=== PATIENT | female | born 1980 | race Caucasian/White ===

== ENCOUNTER → 2018-08-05 11:02 | Outpatient (CLI) | payer OTHER, SELFPAY ==
[2018-08-05 12:19] LABS: Absolute Lymphocyte Count 1.49 X10^3/ul (0.83-4.51); Absolute Neutrophil Count 2.3 X10^3/uL (2.0-7.7); Basophil# 0.02 X10^3/uL; Basophil% 0.5 % (0-1); Eosinophil# 0.08 X10^3/uL; Eosinophils% 1.9 % (0-5); Hematocrit 40.1 % (37-47); Hemoglobin 13.1 g/dl (12.0-15.0); Lymphocyte # 1.49 X10^3/ul (4.0); Lymphocyte % 35.1 % (19-41); Mean Corp Hgb Conc 32.7 g/gl (32-36); Mean Corpuscular Hgb 26.8 pg (27.0-32.0); Mean Corpuscular Volume 82.2 fL (81-99); Mean Platelet Vol. 10.3 fl (6.2-12.0); Monocyte# 0.35 X10^3/uL; Monocyte% 8.3 % (0-10); Neutrophil # 2.29 X10^3/uL (2.7-7.7); Platelet Count 191 K/mm3 (150-450); RBC Distribution Width CV 13.5 % (11.6-14.6); RBC Distribution Width SD 39.9 fl (35.1-43.9); Red Blood Count 4.88 M/mm3 (4.2-5.4); White Blood Count 4.2 K/mm3 (4.4-11.0)
[2018-08-05 12:27] LABS: POSITIVE COUNT NO; POSITIVE DIFFERENTIAL NO; POSITIVE MORPHOLOGY NO
[2018-08-05 13:01] LABS: AST(SGOT) 9 U/L (15-37); Alanine Aminotransfer ALT/SGPT 16 U/L (13-56); Albumin, Serum 3.9 g/dL (3.2-5.0); Alkaline Phosphatase 53 U/L (45-117); Bilirubin, Direct 0.09 mg/dL (0.00-0.30); Globulin 3.3 g/dL (2.2-4.2); Protein, Total 7.2 g/dL (6.4-8.2)
[2018-08-05 13:04] LABS: Internal QC Validated? YES +Cl - CLEAR BKGD; Monotest Negative (Negative); Record Kit Lot#, Mono 13171517
== END ==
PROVIDERS: Visit Provider Family Medicine
DX: M06.9 Rheumatoid arthritis, unspecified (principal); R53.83 Other fatigue
CPT/HCPCS: 36415; 80076; 85025; 86308

== ENCOUNTER → 2018-08-19 12:58 | Outpatient (CLI) | payer OTHER, SELFPAY ==
--- NOTE | 2018-08-19 13:07 | MRI_ITS ---
STUDY: MRI LUMBAR SPINE WITHOUT CONTRAST REASON FOR EXAM: Female, 37 years old. Low back pain with numbness and weakness in the right leg TECHNIQUE: Standardized fat and water weighted pulse sequences were obtained in the sagittal and axial planes. COMPARISON: None FINDINGS: T12-L1: Normal endplates. Normal disc height, hydration and morphology. Normal bilateral facet joints. Normal central canal and bilateral lateral recesses. Normal bilateral intervertebral neural foramina. Normal lumbar lordosis. There is no substantial scoliosis. Normal conus medullaris that terminates at the L1-2 level. L1-2: Normal endplates. Normal disc height, hydration and morphology. Normal bilateral facet joints. Normal central canal and bilateral lateral recesses. Normal bilateral intervertebral neural foramina. L2-3: Normal endplates. Normal disc height, hydration and morphology. Normal bilateral facet joints. Normal central canal and bilateral lateral recesses. Normal bilateral intervertebral neural foramina. L3-4: Normal endplates. Normal disc height, hydration and morphology. Normal bilateral facet joints. Normal central canal and bilateral lateral recesses. Normal bilateral intervertebral neural foramina. L4-5: Broad central disc protrusion with bilateral facet hypertrophy. Moderate central canal stenosis. L5-S1: Bulging annulus and left paracentral annular fissure without compressive sequelae. Normal visualized sacral ala. Normal visualized paraspinous soft tissue structures. MRI/Spine Lumbar (Routine) IMPRESSION: Lower lumbar degenerative change as described. Moderate central canal stenosis at the L4-5 level. No evidence of nerve root impingement. Electronically Signed: Gurmeet aLnda MD at 8:54 EST Tel , Service support ,
== END ==
PROVIDERS: Family Provider Family Medicine; PCP Family Medicine; Referring Provider Family Medicine; Visit Provider Family Medicine
DX: M54.16 Radiculopathy, lumbar region (principal)
CPT/HCPCS: 72148

== ENCOUNTER → 2018-11-03 10:34 | Outpatient (CLI) | payer OTHER, SELFPAY ==
[2018-11-03 11:27] LABS: Color, Urine Yellow (Yellow); Glucose, Dipstick Normal (Normal); Ketone-Dipstick Negative (Negative); Leukocyte Esterase-Dipstick 100 /ul (Negative); Nitrite-Dipstick Negative (Negative); Occult Blood-Urine 250 /ul (Negative); Protein-Dipstick 30 mg/dl (Negative); Specific Gravity, Urine 1.025 (1.002-1.030); Urine Bilirubin Dipstick Negative (Negative); Urine Clarity Sl. Cloudy (Clear); Urine Urobilinogen Normal (Normal)
== END ==
PROVIDERS: Family Provider Family Medicine; PCP Family Medicine; Referring Provider Family Medicine; Visit Provider Family Medicine
DX: R30.0 Dysuria (principal)
CPT/HCPCS: 81002; 87086

== ENCOUNTER 2018-11-14 13:00 | Outpatient (RCR) | payer OTHER, SELFPAY ==
--- NOTE | 2018-10-28 15:51 | HP.PTEVAL_ITS ---
Patient's Visit Information ASHLEIGH MEDEL is a 38 year old F referred to Physical Therapy by Jocy Petersen MD with a diagnosis of BACK AND LEG PAIN. Date of Evaluation: 10/28/18 Physical Therapist: Paulina Ernandez PT, Cert MDT - Visit Plan Frequency: 2-3x /Week Duration: 4-6 Weeks Plan: AQUATIC THERAPY FOR PAIN RELEIF, POSTURE CORRECTION/STRENGTHENING, INSTRUCTION IN APPROPRIATE BODY MECHANICS AND ACTIVITY MODIFICATIONS. DLS STARTING WITH A NEUTRAL SPINE PROGRESSING ROM TOLERATED. ELVA LE ROM, STRETCHING AND STRENGTHENING. HEP INSTRUCTION. 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 OFF WORK 5.5 WEEKS FOR CURRENT CONDITION. BACK TO WORK SINCE END OF SEP 2018. RUN[employer]. Disability: NO. Present symptoms: CONSTANT L > RIGHT LBP. INTERMITTENT LEFT THIGH, LEG AND FOOT PAIN TO TOES. Present since: 6 MONTHS AGO. Pain Scale: WORST 8/10, LEAST 2/10. Currently: 4/10 LBP. Commenced as a result of: NO APPARENT REASON. Symptoms at onset: LOW BACK. Worse: BENDING, LIFTING, TWISTING, RUNNING, PROLONGED STANDING, STANDING UP STRAIGHT, PROLONGED SITTING, SDLY. MASSAGE THERAPY. Better: IBUPROFEN, MUSCLE RELAXER, HEAT. Disturbed sleep: NO. Previous history/Previous treatment: UNREMARKABLE UNTIL 6 MONTHS AGO. THIS EPISODE HAS HAD MRI AND SAW A SURGEON DR. GUTHRIE AT [facility] AND HE SENT HER TO DR. PETERSEN AND SHE HAD TWO MARIELENA'S - WITH TEMPORARY RELEIF ONLY. Coughing/sneezing/straining: NEGATIVE. Gait: LEANS TO THE RIGHT TO TRY TO GET PRESSURE OFF THE LLE AND CAN'T STAND UP STRAIGHT. Difficulty initiating urinatin: NO. Accidents: NO. Unexplained weight loss: NO. Imaging: LUMBAR MRI - L4-5: Broad central disc protrusion with bilateral facet hypertrophy. Moderate central canal stenosis. L5-S1: Bulging annulus and left paracentral annular fissure without compressive sequelae. PMH: RA, ASTHMA. Recent major surgery: 2016 HYSTERECTOMY, 2017 EMERGENCY APENDECTOMY, 2009 GALLBLADDER. PLOF (Prior Level of Function): UNLIMITED. OTHER: PATIENT REPORTS DR. GUTHRIE DOES NOT WANT TO DO SURGERY BECAUSE OF HER AGE. REPORTS HER CO-WORKERS ARE HELPING HER WITH LIFTING AT WORK BUT WORK IS TOUGH WITH BEING ON HER FEET A LOT FOR 12 HOUR SHIFT. - Objective Sitting/Standing Posture: POOR. RIGHT SHIFT AND INCREASED TRUNK FLEXION. Lordosis: REDUCED. Lateral shift: YES. Relevant shift: YES. Active Correction of posture: WORSE. Other Observations: INDEP SLOW GAIT INTO PT LIMPING ON LLE AND WITH EXCESSIVE TRUNK FLEX TO THE RIGHT BUT NO AD'S OR LOB. Motor deficit: RIGHT LE: HIP 4-/5, KNEE EXT 5/5, KNEE FLEX 5/5, ANKLE 5/5. LLE: HIP 3+/5, KNEE EXT 4/5, KNEE FLEX 4/5, ANKLE 3+/5. RIGHT HIP TESTING APPEARS TO BE PAIN LIMITED. Sensory deficit: ELVA LE LIGHT TOUCH SENSATION APPEARS TO BE INTACT AND SYMMETRICAL. ROM deficit: TIGHT ELVA HIP FLEXORS, LEFT HS'S AND LEFT GASTROC SOLEUS COMPLEX. Reflexes: 2/3 ELVA LE'S. Dural Signs: POSITIVE ELVA LE'S LEFT > RIGHT. Lumbar mvmt loss: flex - MOD - PRODUCES SHARP PAIN ACROSS LOW BACK. ext - FAISAL - UNALBE TO GET TO NEUTRAL. PERIPHERALIZES PAIN DOWN LEFT LE. R SG - MOD - INCREASES LBP. L SG - FAISAL - BACK GETS REALLY TIGHT, HURTS AND RADIATES INTO LLE. Core strength: POOR. Palpation: ACUTELY TENDER IN LUMBAR SPINE ESPECIALLY L345S1. VERY TIGHT ELVA PARASPINALS. - Goals Goal 1:: DECREASE C/O BACK AND LEFT LE SX'S Goal Time Frame: 4-6 Weeks Goal 2:: IMPROVE PERSONAL CARE, LIFTING, SITTING, STANDING, SLEEP, SOCIAL LIFE, TRAVEL, HOMEMAKING AND WORK FUNCTION. Goal Time Frame: 4-6 Weeks Goal 3:: INSTRUCT IN PROPHYLAXIS Goal Time Frame: 4-6 Weeks - Rehabilitation Potential Rehabilitation Potential: Fair - Anticipated Interventions Patient/Client Instruction: Educate patient on: Condition, Plan of Care, Risk Factors, Benefits of Fitness Program For the Purpose of:: To improve self management Therapeutic Exercise to Include: Strength training, Body mechanics, Postural training, Flexibilty training, In an aquatic setting, Active ROM, Dynamic Lumbar Stabilization For the Purpose of:: To decrease pain, To improve muscle performance and motor function, To increase tolerance to activity/condition/position, To improve ability of physical actions for home/community/work/leisure Thank you for the opportunity to evaluate your patient. For Medicare and Medicare HMO plans, please review the plan of care and approve it. It will need to be FAXED BACK to us at [phone] for Medicare purposes. For Medicare only, by signing this I certify the plan of care. Please let me know if there are questions or concerns regarding this plan of ca re. Physician Signature: Date:
--- NOTE | 2018-11-23 10:22 | HP.PTDCNRP_ITS ---
HP - Discharge Summary (1) - Patient Information ASHLEIGH MEDEL was seen in my office for initial evaluation on 10/28/18. The following Plan of Care was established for this patient: Initial Frequency: 2-3x /Week Initial Duration: 4-6 Weeks - Anticipated Interventions Patient/Client Instruction: Educate patient on: Condition, Plan of Care, Risk Factors, Benefits of Fitness Program For the Purpose of:: To improve self management Therapeutic Exercise to Include: Strength training, Body mechanics, Postural training, Flexibilty training, In an aquatic setting, Active ROM, Dynamic Lumbar Stabilization For the Purpose of:: To decrease pain, To improve muscle performance and motor function, To increase tolerance to activity/condition/position, To improve abili ty of physical actions for home/community/work/leisure This patient was last seen in our office . Pertinent comments regarding their Physical therapy will appear below: This patient has not returned to Physical Therapy and is appropriate to return to MD for further follow-up as needed. At this point I will be discontinuing this patient from physical therapy. I would be happy to see this patient again in the future if found appropriate by the physician. Thank you! Paulina Ernandez, PT, Cert MDT
--- OUTSIDE RECORDS SUMMARY | 2019-01-01 16:34 | XMS RPT_ITS ---
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 on 07/19/2018 Preliminary reason for visit data, not yet signed by the author as of Chief Complaint Chief Complaint Description Start Date right arm post Right endoscopic cubital tunnel syndrome with release of brachial and; Right endoscopic carpal tunnel release; Denervation of wrist; 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 Plan of Care Type Date Detail Appointment 09:30 AM Lisset Tavarez MD, [address] [facility] [place], [place], [address], Medications Medication Instructions Start Stop Generic Name NDC Provider Date Date DOXYCYCLINE 1 tab twice / DOXYCYCLINE 64884205714 Lisset Holloway HYCLATE 100 MG daily 14 HYCLATE Daysi TAN TABS LIDOCAINE 4 % apply topically / LIDOCAINE [id number] Mollie O CREA three times 02 Daysi TAN daily as needed OXYCODONE-ACETA 1 tablet twice / OXYCODONE-ACETAMI 96839757081 Mollie O MINOPHEN 5-325 daily 02 NOPOLGA Tavarez MD MG TABS PROBIOTIC 1 tablet daily / LACTOBACILLUS [id number] Mollie O ACIDOPHILUS 02 Daysi TAN CAPS PREMARIN 0.625 1 tablet daily / ESTROGENS [id number] Mollie O MG TABS 02 CONJUGATED Daysi TAN OMEPRAZOLE 20 1 capsule daily / OMEPRAZOLE 38722695525 Mollie O MG CPDR 02 Daysi TAN GABAPENTIN 400 1 capsule four / GABAPENTIN 75489450128 Mollie O MG CAPS times daily 02 Daysi TAN SYNTHROID 125 1 tablet daily / LEVOTHYROXINE 30537215758 Mollie O MCG TABS SODIUM Daysi TAN FLURBIPROFEN 1 tablet three / FLURBIPROFEN 62037502512 Mollie O 100 MG TABS times daily 02 Daysi TAN DULOXETINE HCL 1 capsule daily / DULOXETINE HCL 97904356279 Mollie O 30 MG CPEP 02 Daysi TAN BENICAR 40 MG 1 tablet in the / OLMESARTAN 02417926437 Mollie O TABS evening 21 MEDOXOMIL Daysi TAN VITAMIN D3 2000 1 tablet daily / CHOLECALCIFEROL 65348253195 Mollie O UNIT TABS 21 Daysi TAN MAGNESIUM 400 1 tablet daily / MAGNESIUM 43171457302 Mollie O MG TABS 21 Daysi TAN MULTI VITAMIN 1 tablet daily / MULTIPLE VITAMIN 69088895230 Griselda TABS 02 SENIOR UI UX DESIGNER Conditions or Problems Problem Name Problem Onset Status Entry Provider Comment Standard Annotate Code Date Date Description 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 Peripheral 189500114 Active Mollie O Peripheral nerve neuropathy (SNOMED 02/28 02/[address]) Unilateral M18.11 Active Mollie O Unilateral primary (ICD-10-CM 02/28 02/28 Daysi TAN primary osteoarthritis ) osteoarthritis of first of first carpometacarpa carpometacarpal l joint right joint, right hand hand Unilateral M18.12 Active Mollie O Unilateral primary (ICD-10-CM 02/28 02/28 Daysi TAN primary osteoarthritis ) osteoarthritis of first of first carpometacarpa carpometacarpal l joint left joint, left hand hand Primary M19.042 Active Mollie O Primary osteoarthritis (ICD-10-CM 02/28 02/28 Daysi TAN osteoarthritis, left hand ) left hand Primary M19.041 Active Mollie O Primary osteoarthritis (ICD-10-CM 02/28 02/28 Daysi TAN osteoarthritis, right hand ) right hand Lesion of G56.22 Active Mollie O Lesion of ulnar ulnar nerve (ICD-10-CM 02/28 02/28 Daysi TAN nerve, left left upper ) upper limb limb Lesion of G56.21 Active Mollie O Lesion of ulnar ulnar nerve (ICD-10-CM 02/28 02/28 Daysi TAN nerve, right right upper ) upper limb limb Carpal tunnel G56.02 Active Mollie O Carpal tunnel syndrome left (ICD-10-CM 02/28 02/28 Daysi TAN syndrome, left upper limb ) upper limb Carpal tunnel G56.01 Active Mollie O Carpal tunnel syndrome right (ICD-10-CM 02/28 02/28 Daysi TAN syndrome, right upper limb ) upper limb Trochanteric M70.62 Active Alireza العراقي Trochanteric bursitis left (ICD-10-CM 10/13 10/13 Audi TAN bursitis, left hip ) hip Presence of Z96.652 Active Alireza العراقي Presence of left left (ICD-10-CM 10/13 10/13 Audi TAN artificial knee artificial ) joint knee joint Presence of Z96.651 Active Alireza العراقي Presence of right (ICD-10-CM 10/13 10/13 Audi TAN right artificial artificial ) knee joint knee joint Closed [id number] Active Brady Closed fracture nondisplaced (SNOMED 12/01 12/01 Regan of patella fracture of CT) PAC right patella, unspecified fracture morphology, initial encounter Allergies, Adverse Reactions, Alerts Allergy Name Reaction Start Date Severity Status Provider Description VICRYL SUTURE doesn't heal Critical Active Lisset Holloway until all Daysi TAN sutures are removed. DEMEROL severe headache Critical Active Ernestine Brayan SENIOR UI UX DESIGNER NUCYNTA extreme Critical Active Ernestine Brayan drowziness,itchi SENIOR UI UX DESIGNER ng HYDROCHLOROTHIAZIDE disoriented Critical Active Ernestine Brayan SENIOR UI UX DESIGNER VICODIN rash Critical Active Ernestine Brayan (HYDROCODONE-ACETAMINOPH SENIOR UI UX DESIGNER EN TABS) Social History No information available. Vital Signs Date Name Value Unit Description BMI (Body Mass 33.25 kg/m2 Body Mass Index Index) [Ratio] Preliminary vital sign data, not yet signed by the author as of BP Diastolic 77 mm[Hg] blood pressure, diastolic Preliminary vital sign data, not yet signed by the author as of BP Systolic 119 mm[Hg] blood pressure, systolic Preliminary vital sign data, not yet signed by the author as of Heart Rate 79 /min pulse rate E&M Preliminary vital sign data, not yet signed by the author as of Height 63 [in_us] height E&M Preliminary vital sign data, not yet signed by the author as of Height 160 cm height in centimeters E&M Preliminary vital sign data, not yet signed by the author as of Weight Measured 187 [lb_av] weight E&M Preliminary vital sign data, not yet signed by the author as of Weight Measured 85 kg weight in kilograms E&M Preliminary vital sign data, not yet signed by the author as of Results Date Name Value Unit Range Flag Description Office Visit: Postop - subsequent visit, Rm: 7 MEDS REVIEW Done Documentation of current medications (procedure) Preliminary observation data, not yet signed by the author as of Preliminary observation data, not yet signed by the author as of Clinical Summary: HMSPatientID SOP account number Procedures Code Procedure Name Date Entry Date G8730 Pain assessment documented as positive - follow-up documented G8427 Current medications documented 1036F Tobacco screening was negative - non user G8417 BMI documented as above normal parameters - follow-up documented G8783 Blood pressure within normal parameters - no follow-up required [facility] [id number] Patient Encounter Medications Administered No information available. Immunizations No information available. Advance Directives There may be information available, but it has not been provided by the sender. Assessments There may be information available, but it has not been provided by the sender. Review of Systems There may be information available, but it has not been provided by the sender. Family History There may be information available, but it has not been provided by the sender. History of Past Illness There may be information available, but it has not been provided by the sender. History of Present Illness There may be information available, but it has not been provided by the sender.
--- OUTSIDE RECORDS SUMMARY | 2019-01-01 16:34 | XMS RPT_ITS ---
:1980 Author Organization OH[facility] Care Team Providers Name Role Phone Basali, Ayman Attending Unavailable Basali, Ayman Referring Unavailable Miedel, Soniya Primary Care Unavailable Miedel, Soniya Attending Unavailable Miedel, Soniya Referring Unavailable Miedel, Soniya Primary Care Unavailable ASSESSMENT, HEALTH RISK Attending Unavailable ASSESSMENT, HEALTH RISK Referring Unavailable Miedel, Soniya Primary Care Unavailable Miedel, Soniya Attending Unavailable Miedel, Soniya Attending Unavailable Miedel, Soniya Referring Unavailable Miedel, Soniya Primary Care Unavailable PROBLEMS PROBLEMS DATE TYPE CONDITION / CODE ATTENDING STATUS SOURCE 11/03/2018 Unknown R30.0 - Dysuria / Miedel, Soniya Active [facility] R30.0(ICD-10) [facility] Repository 08/05/2018 Unknown R53.83 - Other Miedel, Soniya Active [facility] fatigue / Community R53.83(ICD-10) Hospital Repository 08/05/2018 Unknown M06.9 - Miedel, Soniya Active [facility] Rheumatoid Community arthritis, Hospital unspecified / Repository M06.9(ICD-10) PROCEDURES PROCEDURES No Procedure Records FoundRESULTS RESULTS URINALYSIS, ROUTINE Collected: 11/03/2018 Status: F Source: [place] (DIPSTICK) 10:41 AM [facility] REPOSITORY Order Comment: How was Urine Obtained? CLEAN CATCH TYPE CODE TESTS RESULT OUT OF RANGE REFERENCE UNITS LAB L400.3000 Yellow COLOR Normal Yellow LAB L400.3050 Clear Normal CLARITY Sl. Cloudy LAB L400.3200 Normal mg/dl Normal GLUCOSE, UR Normal LAB L400.3300 Negative mg/dL Normal BILIRUBIN URINE Negative LAB L400.3400 Negative mg/dl Normal KETONE UR Negative LAB L400.3465 1.002-1.030 Normal SP.GR. DIPSTX 1.025 LAB L400.3550 5.0 - 8.0 pH UR Normal 5.0 LAB L400.3600 Negative mg/dl High PROT 30 DIPSTX LAB L400.3700 Normal mg/dl Normal UROBILI Normal LAB L400.3750 Negative Normal NITRITE UR Negative LAB L400.3780 Negative /ul High OCCULT BLOOD-UR 250 LAB L400.3800 Negative /ul High LEUK ESTERASE 100 Performed By: #### L400.2010 #### [facility] [place], [address] Observed: 11/03/2018 Status: F Source: [place] CULTURE, URINE 10:41 AM [facility] REPOSITORY Urine Culture Culture exhibits no growth. Performed By: #### M100.0650 #### [facility] [address] [place], [address] INITAL EVALUATION (1) Observed: 10/28/2018 Status: F Source: [place] - PT 4:24 PM [facility] REPOSITORY [facility] [address] [place] [address] / REHABILITATION SERVICES INITIAL EVALUATION MR#: [id number] Acct: [id number] Name: ASHLEIGH MEDEL Rep #: [id number] : 1980 38 From: Paulina Ernandez PT, Cert. MDT Referring Dr.: Jocy Petersen MD Status: REG RCR Insurance: [employer] [email or web address] SELF PAY INSURANCE Patient's Visit Information ASHLEIGH MEDEL is a 38 year old F referred to Physical Therapy by Jocy Petersen MD with a diagnosis of BACK AND LEG PAIN. Date of Evaluation: 10/28/18 Physical Therapist: Paulina Ernandez PT, Cert MDT - Visit Plan Frequency: 2-3x /Week Duration: 4-6 Weeks Plan: AQUATIC THERAPY FOR PAIN RELEIF, POSTURE CORRECTION/STRENGTHENING, INSTRUCTION IN APPROPRIATE BODY MECHANICS AND ACTIVITY MODIFICATIONS. DLS STARTING WITH A NEUTRAL SPINE PROGRESSING ROM TOLERATED. ELVA LE ROM, STRETCHING AND STRENGTHENING. HEP INSTRUCTION. 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 OFF WORK 5.5 WEEKS FOR CURRENT CONDITION. BACK TO WORK SINCE END OF SEP 2018. RUNNER. Disability: NO. Present symptoms: CONSTANT L > RIGHT LBP. INTERMITTENT LEFT THIGH, LEG AND FOOT PAIN TO TOES. Present since: 6 MONTHS AGO. Pain Scale: WORST 8/10, LEAST 2/10. Currently: 4/10 LBP. Commenced as a result of: NO APPARENT REASON. Symptoms at onset: LOW BACK. Worse: BENDING, LIFTING, TWISTING, RUNNING, PROLONGED STANDING, STANDING UP STRAIGHT, PROLONGED SITTING, SDLY. MASSAGE THERAPY. Better: IBUPROFEN, MUSCLE RELAXER, HEAT. Disturbed sleep: NO. Previous history/Previous treatment: UNREMARKABLE UNTIL 6 MONTHS AGO. THIS EPISODE HAS HAD MRI AND SAW A SURGEON DR. GUTHRIE AT [facility] AND HE SENT HER TO DR. PETERSEN AND SHE HAD TWO MARIELENA'S - WITH TEMPORARY RELEIF ONLY. Coughing/sneezing/straining: NEGATIVE. Gait: LEANS TO THE RIGHT TO TRY TO GET PRESSURE OFF THE LLE AND CAN'T STAND UP STRAIGHT. Difficulty initiating urinatin: NO. Accidents: NO. Unexplained weight loss: NO. Imaging: LUMBAR MRI - L4-5: Broad central disc protrusion with bilateral facet hypertrophy. Moderate central canal stenosis. L5-S1: Bulging annulus and left paracentral annular fissure without compressive sequelae. PMH: RA, ASTHMA. Recent major surgery: 2016 HYSTERECTOMY, 2017 EMERGENCY APENDECTOMY, 2009 GALLBLADDER. PLOF (Prior Level of Function): UNLIMITED. OTHER: PATIENT REPORTS DR. GUTHRIE DOES NOT WANT TO DO SURGERY BECAUSE OF HER AGE. REPORTS HER CO-WORKERS ARE HELPING HER WITH LIFTING AT WORK BUT WORK IS TOUGH WITH BEING ON HER FEET A LOT FOR 12 HOUR SHIFT. - Objective Sitting/Standing Posture: POOR. RIGHT SHIFT AND INCREASED TRUNK FLEXION. Lordosis: REDUCED. Lateral shift: YES. Relevant shift: YES. Active Correction of posture: WORSE. Other Observations: INDEP SLOW GAIT INTO PT LIMPING ON LLE AND WITH EXCESSIVE TRUNK FLEX TO THE RIGHT BUT NO AD'S OR LOB. Motor deficit: RIGHT LE: HIP 4-/5, KNEE EXT 5/5, KNEE FLEX 5/5, ANKLE 5/5. LLE: HIP 3+/5, KNEE EXT 4/5, KNEE FLEX 4/5, ANKLE 3+/5. RIGHT HIP TESTING APPEARS TO BE PAIN LIMITED. Sensory deficit: ELVA LE LIGHT TOUCH SENSATION APPEARS TO BE INTACT AND SYMMETRICAL. ROM deficit: TIGHT ELVA HIP FLEXORS, LEFT HS'S AND LEFT GASTROC SOLEUS COMPLEX. Reflexes: 2/3 ELVA LE'S. Dural Signs: POSITIVE ELVA LE'S LEFT > RIGHT. Lumbar mvmt loss: flex - MOD - PRODUCES SHARP PAIN ACROSS LOW BACK. ext - FAISAL - UNALBE TO GET TO NEUTRAL. PERIPHERALIZES PAIN DOWN LEFT LE. R SG - MOD - INCREASES LBP. L SG - FAISAL - BACK GETS REALLY TIGHT, HURTS AND RADIATES INTO LLE. Core strength: POOR. Palpation: ACUTELY TENDER IN LUMBAR SPINE ESPECIALLY L345S1. VERY TIGHT ELVA PARASPINALS. - Goals Goal 1:: DECREASE C/O BACK AND LEFT LE SX'S Goal Time Frame: 4-6 Weeks Goal 2:: IMPROVE PERSONAL CARE, LIFTING, SITTING, STANDING, SLEEP, SOCIAL LIFE, TRAVEL, HOMEMAKING AND WORK FUNCTION. Goal Time Frame: 4-6 Weeks Goal 3:: INSTRUCT IN PROPHYLAXIS Goal Time Frame: 4-6 Weeks - Rehabilitation Potential Rehabilitation Potential: Fair - Anticipated Interventions Patient/Client Instruction: Educate patient on: Condition, Plan of Care, Risk Factors, Benefits of Fitness Program For the Purpose of:: To improve self management Therapeutic Exercise to Include: Strength training, Body mechanics, Postural training, Flexibilty training, In an aquatic setting, Active ROM, Dynamic Lumbar Stabilization For the Purpose of:: To decrease pain, To improve muscle performance and motor function, To increase tolerance to activity/condition/position, To improve ability of physical actions for home/community/work/leisure Thank you for the opportunity to evaluate your patient. For Medicare and Medicare HMO plans, please review the plan of care and approve it. It will need to be FAXED BACK to us at [phone] for Medicare purposes. For Medicare only, by signing this I certify the plan of care. Please let me know if there are questions or concerns regarding this plan of care. Physician Signature: Date: <Electronically signed by Paulina Ernandez PT, Cert. MDT> 10/28/18 1624 CC: Jocy Petersen MD; Soniya Feng MD [place] Signed CNCO Observed: 09/13/2018 Status: COMPLETED Source: [place] 12:00 AM [facility] REPOSITORY Letter Text Department of Gastroenterology [address] [place] [place] [address] 09/12/18 Ashleigh Medel [facility] [place] [address] Dear Ashleigh, We show you had an apt with DIGNA Zuleta today 09/12/18. If problem is still persisting please call to reschedule [phone]. Sincerely, DIGNA Jim/Casandra Lincoln LPN SPINE LUMBAR Observed: 08/19/2018 Status: F Source: [place] (ROUTINE) 1:07 PM [facility] REPOSITORY [facility] Imaging Services [address] [place] [address] Spine Lumbar (Routine) MR#: [id number] Acct: [id number] Name: ASHLEIGH MEDEL Rep #: [id number] : 1980 F 37 From: Gurmeet Landa MD PCP: Soniya Feng MD Status: REG CLI Study: Spine Lumbar (Routine) Date of Exam: 08/19/18 Exam# [id number] Ordering Dr: Soniya Feng MD ADDENDUM by Gurmeet Landa MD on 08/23/18 at 2308 ADDENDUM Comparison radiographs from 2009 are now available. Alignment is stable. Electronically Signed: Gurmeet Landa MD at 23:08 EST Tel , Service support , 08/23/18 2308 Date cc: Soniya Feng MD * Signed ADDENDUM by Gurmeet Lnada MD on 08/23/18 at 2308 ADDENDUM Comparison radiographs from 2009 are now available. Alignment is stable. Electronically Signed: Gurmeet Landa MD at 23:08 EST Tel , Service support , 08/23/18 2308 Date cc: Soniya Feng MD * Signed ADDENDUM by Gurmeet Landa MD on 08/23/18 at 2308 MRI/Spine Lumbar (Routine) 08/23/18 231 Date cc: Soniya Feng MD * Signed ADDENDUM by Gurmeet Landa MD on 08/23/18 at 2308 MRI/Spine Lumbar (Routine) 08/23/18 231 Date cc: Soniya Feng MD * Signed STUDY: MRI LUMBAR SPINE WITHOUT CONTRAST REASON FOR EXAM: Female, 37 years old. Low back pain with numbness and weakness in the right leg TECHNIQUE: Standardized fat and water weighted pulse sequences were obtained in the sagittal and axial planes. COMPARISON: None FINDINGS: T12-L1: Normal endplates. Normal disc height, hydration and morphology. Normal bilateral facet joints. Normal central canal and bilateral lateral recesses. Normal bilateral intervertebral neural foramina. Normal lumbar lordosis. There is no substantial scoliosis. Normal conus medullaris that terminates at the L1-2 level. L1-2: Normal endplates. Normal disc height, hydration and morphology. Normal bilateral facet joints. Normal central canal and bilateral lateral recesses. Normal bilateral intervertebral neural foramina. L2-3: Normal endplates. Normal disc height, hydration and morphology. Normal bilateral facet joints. Normal central canal and bilateral lateral recesses. Normal bilateral intervertebral neural foramina. L3-4: Normal endplates. Normal disc height, hydration and morphology. Normal bilateral facet joints. Normal central canal and bilateral lateral recesses. Normal bilateral intervertebral neural foramina. L4-5: Broad central disc protrusion with bilateral facet hypertrophy. Moderate central canal stenosis. L5-S1: Bulging annulus and left paracentral annular fissure without compressive sequelae. Normal visualized sacral ala. Normal visualized paraspinous soft tissue structures. MRI/Spine Lumbar (Routine) IMPRESSION: Lower lumbar degenerative change as described. Moderate central canal stenosis at the L4-5 level. No evidence of nerve root impingement. Electronically Signed: Gurmeet Landa MD at 8:54 EST Tel , Service support , CC: Soniya Feng MD Quality Control Auditor: Signed CBC W/DIFF, AUTOMATED Collected: 08/05/2018 Status: F Source: [place] 11:05 AM [facility] REPOSITORY TYPE CODE TESTS RESULT OUT OF RANGE REFERENCE UNITS LAB L100.1000 4.4-11.0 K/mm3 Low WBC 4.2 LAB L100.1200 4.2-5.4 M/mm3 Normal RBC 4.88 LAB L100.1300 12.0-15.0 g/dl Normal HGB 13.1 LAB L100.1400 37-47 % Normal HCT 40.1 LAB L100.1500 81-99 fL Normal MCV 82.2 LAB L100.1600 27.0-32.0 pg Low MCH 26.8 LAB L100.1700 32-36 g/gl Normal MCHC 32.7 LAB L100.1810 11.6-14.6 % Normal RDW CV 13.5 LAB L100.1820 35.1-43.9 fl Normal RDW SD 39.9 LAB L100.1900 150-450 K/mm3 Normal PLT 191 LAB L100.2000 6.2-12.0 fl Normal MPV 10.3 LAB L100.2100 47-70 % Normal NEUT% 54.0 LAB L100.2200 19-41 % Normal LY% 35.1 LAB L100.2300 0-10 % Normal MONO% 8.3 LAB L100.2400 0-5 % Normal EO% 1.9 LAB L100.2500 0-1 % Normal BASO% 0.5 LAB L100.2550 0.0-0.9 % Normal IM GRAN % 0.200 Result Comment: IG% - Immature Granulocytes (promyelocytes, myelocytes and metamyelocytes) > 1% indicates that a LEFT SHIFT is Present. LAB L100.2620 2.0-7.7 X10 3/uL Normal Absolute Neut 2.3 LAB L100.2720 0.83-4.51 X10 3/ul Normal Absolute Lymph 1.49 Performed By: #### L100.0100 #### [facility] [address] LIVER PROFILE Collected: 08/05/2018 Status: F Source: [place] 11:05 AM [facility] REPOSITORY TYPE CODE TESTS RESULT OUT OF RANGE REFERENCE UNITS LAB L501.1500 6.4-8.2 g/dL Normal T PROT 7.2 LAB L501.1800 3.2-5.0 g/dL Normal ALB 3.9 LAB L501.1950 2.2-4.2 g/dL Normal GLOB 3.3 LAB L501.4100 15-37 U/L Low AST 9 LAB L501.4305 45-117 U/L Normal ALK P 53 LAB L501.4405 13-56 U/L Normal ALT 16 LAB L501.4600 0.20-1.00 mg/dL Normal T BILI 0.50 LAB L501.4700 0.00-0.30 mg/dL Normal D BILI 0.09 Performed By: #### L500.3400 #### [facility] [id number] MONOTEST Collected: 08/05/2018 Status: F Source: [place] 11:05 [facility] REPOSITORY TYPE CODE TESTS RESULT OUT OF RANGE REFERENCE UNITS LAB L700.5700 Negative Normal MONO Negative Performed By: #### L700.5500 #### [facility] [address] URINALYSIS, EMPLOYEE Collected: 06/06/2018 Status: F Source: [place] 8:51 AM [facility] REPOSITORY TYPE CODE TESTS RESULT OUT OF RANGE REFERENCE UNITS LAB L400.3000 Yellow COLOR Normal Yellow LAB L400.3050 Clear Normal CLARITY Sl. Cloudy LAB L400.3200 Normal mg/dl Normal GLUCOSE, UR Normal LAB L400.3300 Negative mg/dL Normal BILIRUBIN URINE Negative LAB L400.3400 Negative mg/dl Normal KETONE UR Negative LAB L400.3465 1.002-1.030 Normal SP.GR. DIPSTX 1.025 LAB L400.3550 5.0 - 8.0 pH UR Normal 5.0 LAB L400.3600 Negative mg/dl PROT Normal DIPSTX Negative LAB L400.3700 Normal mg/dl Normal UROBILI Normal LAB L400.3750 Negative Normal NITRITE UR Negative LAB L400.3780 Negative /ul High 10 OCCULT BLOOD-UR LAB L400.3800 Negative /ul High LEUK 25 ESTERASE Performed By: #### L400.0100 #### [facility] [address] [place], [address] CBC, EMPLOYEE Collected: 06/06/2018 Status: F Source: [place] 8:51 AM [facility] REPOSITORY TYPE CODE TESTS RESULT OUT OF RANGE REFERENCE UNITS LAB L100.1000 4.4-11.0 K/mm3 Normal WBC 4.7 LAB L100.1200 4.2-5.4 M/mm3 Normal RBC 5.19 LAB L100.1300 12.0-15.0 g/dl Normal HGB 14.0 LAB L100.1400 37-47 % Normal HCT 42.6 LAB L100.1500 81-99 fL Normal MCV 82.1 LAB L100.1600 27.0-32.0 pg Normal MCH 27.0 LAB L100.1700 32-36 g/gl Normal MCHC 32.9 LAB L100.1810 11.6-14.6 % Normal RDW CV 13.0 LAB L100.1820 35.1-43.9 fl Normal RDW SD 39.0 LAB L100.1900 150-450 K/mm3 Normal PLT 223 LAB L100.2000 6.2-12.0 fl Normal MPV 10.2 LAB L100.2110 47-70 % Normal NEUT% 54.6 LAB L100.2210 19-41 % Normal LY% 35.3 LAB L100.2310 0-10 % Normal MONO% 7.4 LAB L100.2410 0-5 % Normal EO% 2.3 LAB L100.2510 0-1 % Normal BASO% 0.2 LAB L100.2620 2.0-7.7 X10 3/uL Normal Absolute Neut 2.6 LAB L100.2720 0.83-4.51 X10 3/ul Normal Absolute Lymph 1.66 Performed By: #### L100.0200 #### [facility] [address] [place], [place], [address] NICOTINE URINE DRUG Collected: 06/06/2018 Status: F Source: [place] SCREEN 8:51 AM [facility] REPOSITORY TYPE CODE TESTS RESULT OUT OF RANGE REFERENCE UNITS LAB L505.6250 TO BE Normal CONFIRMED Result Comment: CONFIRMATORY TESTING FOR ALL POSITIVE URINE DRUG SCREEN RESULTS WILL ONLY BE SENT OUT UPON PHYSICIAN ORDER. The results of Urine Drug Screen methods provide only preliminary analytical test results. A more specific alternate chemical method must be used in order to obtain a confirmed analytical result. Gas chromatography/mass spectrometery (GC/MS) is the preferred confirmatory method. Clinical consideration and professional judgement should be applied to any drug of abuse test result, particularly when preliminary positive results are used. LAB L505.6270 <200 ng/mL Normal COT DRG Negative SCREEN Result Comment: Cotinine is the first-stage metabolite of Nicotine. Performed By: #### L505.6240 #### [facility] [address] [facility] [place], [address] EMPLOYEE PROFILE Collected: 06/06/2018 Status: F Source: [place] 8:51 AM [facility] REPOSITORY TYPE CODE TESTS RESULT OUT OF RANGE REFERENCE UNITS LAB L501.0100 74-106 mg/dL Normal GLU 98 Result Comment: Please note revised GLUCOSE reference range effective 2017. LAB L501.1000 7-18 mg/dL Normal BUN 15 LAB L501.1100 0.55-1.02 mg/dL Normal CREAT,SERUM 0.81 Result Comment: The validity of the calculated GFR AND GFRAA in patients over 70 years has not been determined. Clinical correlation is essential. LAB L501.1110 >60 mL/min Normal EST GFR 85 Result Comment: Non- GFR Calc LAB L501.1115 >60 mL/min Normal EST GFR - AA 103 Result Comment: GFR Calc LAB L501.1300 10-20 RATIO Normal BUN/CRE 18.5 LAB L501.1400 2.6-6.0 mg/dL Normal URIC 2.7 Result Comment: The drugs N-Acetylcysteine and Metamizole may falsely depress this assay. LAB L501.1500 6.4-8.2 g/dL Normal T PROT 7.7 LAB L501.1800 3.2-5.0 g/dL Normal ALB 3.9 LAB L501.1950 2.2-4.2 g/dL Normal GLOB 3.8 LAB L501.2000 0.9-2.4 RATIO Normal A/G 1.0 LAB L501.2200 8.5-10.1 mg/dL Normal CA 8.9 LAB L501.2300 2.5-4.9 mg/dL Normal PHOS 3.9 LAB L501.4100 15-37 U/L Low AST 14 LAB L501.4305 45-117 U/L Normal ALK P 61 LAB L501.4405 13-56 U/L Normal ALT 19 LAB L501.4600 0.20-1.00 mg/dL Normal T BILI 0.60 LAB L501.4700 0.00-0.30 mg/dL Normal D BILI 0.17 LAB L501.4900 200 mg/dL Normal CHOL 139 Result Comment: <200 mg/dL Desirable 200-240 mg/dL Borderline >240 mg/dL High Risk LAB L501.5000 mg/dL Normal TRIG 59 Result Comment: The drugs N-Acetylcysteine and Metamizole may falsely depress this assay. Serum Triglycerides Reference Interval Normal <150 mg/dL Borderline high 150 - 199 mg/dL High 200 - 499 mg/dL Very High > or = 500 mg/dL LAB L501.5300 136-145 mmol/L Normal NA 144 LAB L501.5600 3.5-5.1 mmol/L Low K 3.4 LAB L501.5900 98-107 mmol/L Normal CL 106 LAB L501.6100 21.0-32.0 mmol/L Normal CO2 29.0 LAB L501.6200 5-15 Normal 9 GAP LAB L501.6400 mg/dL Normal HDL 57 Result Comment: The drugs N-Acetylcysteine and Metamizole may falsely depress this assay. Reference Range HDL <40 mg/dL Low HDL Cholesterol HDL >or= 60 mg/dL High HDL Cholesterol LAB L501.6475 Normal CHOL:HDL 2.40 LAB L501.6500 0-130 mg/dL Normal LDL 70 LAB L501.6600 5-40 mg/dL Normal VLDL 12 LAB L504.2610 84-246 U/L Normal LDH 133 Performed By: #### L500.2900 #### [facility] [address] [place], [address] PROGRESS Observed: 04/10/2018 Status: COMPLETED Source: [place] 3:17 PM [facility] REPOSITORY HNO ID: [id number] Author: Reji Gonzales (Pavel) Alexandro Service: (none) Author Type: Nurse Practitioner Type: Progress Notes Filed: 04/10/2018 3:25 PM Note Text: Subjective HPI Patient presents with: Sore Throat: sore throat X 4 days States possible exposure last week. Denies URI symptoms. Ibuprofen otc with minimal relief. Review of Systems Constitutional: Positive for fever (low grade at home). HENT: Positive for sore throat. Negative for congestion and ear pain. Eyes: Negative for discharge and redness. Respiratory: Negative for cough. Gastrointestinal: Negative for abdominal pain, nausea and vomiting. Skin: Negative for rash. Neurological: Negative for headaches. 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 predniSONE (DELTASONE) 20 mg tablet Take 2 tablets by mouth once daily for 4 days. Take daily with food. SULFAMETHOXAZOLE/TRIMETHOPRIM (BACTRIM DS ORAL) Take by mouth. CEPHALEXIN (KEFLEX ORAL) Take by mouth. FAMILY HISTORY Problem Relation Age of Onset - Breast Cancer Maternal Grandmother - Hypertension Maternal Grandfather - Lipids Maternal Grandfather High cholesterol - Colon Cancer Paternal Grandmother - Diabetes Paternal Grandmother - Arthritis Paternal Grandmother Rheumatoid - Colon Cancer Paternal Uncle - Asthma Sister - Heart Sister MVP Social History Substance Use Topics - Smoking status: Never Smoker - Smokeless tobacco: Never Used - Alcohol use Yes Comment: socially Objective Physical Exam Constitutional: She is well-developed, well-nourished, and in no distress. HENT: Head: Normocephalic. Right Ear: External ear and ear canal normal. A middle ear effusion is present. Left Ear: External ear and ear canal normal. A middle ear effusion is present. Nose: Rhinorrhea present. Right sinus exhibits no maxillary sinus tenderness and no frontal sinus tenderness. Left sinus exhibits no maxillary sinus tenderness and no frontal sinus tenderness. Mouth/Throat: Posterior oropharyngeal erythema (injected and PND) present. Eyes: Conjunctivae are normal. Neck: Normal range of motion. Neck supple. Cardiovascular: Normal rate, regular rhythm and normal heart sounds. Pulmonary/Chest: Effort normal and breath sounds normal. No respiratory distress. She has no wheezes. Abdominal: Soft. She exhibits no distension. There is no tenderness. Lymphadenopathy: She has no cervical adenopathy. Skin: Skin is warm and dry. No rash noted. Nursing note and vitals reviewed. ASSESSMENT/PLAN: 1. Sore throat - ICD9: 462, ICD10: J02.9 - suspect viral - Rapid Strep negative in the office today and Throat culture pending - Discussed supportive care treatment with fluids, rest and analgesia. - The patient may also use OTC decongestants prn and warm salt water gargles, throat lozenges and/or OTC throat spray as needed. - The patient should follow up in 3-5 days if symptoms persist or worsen - Call back if drooling, increased temperature, symptoms of dehydration and/or still sick in one week - RAPID STREP TEST B/O - GROUP A STREPTOCOCCUS BY PCR Prescription instructions reviewed with patient as applicable. Patient advised if symptoms do not improve or if symptoms worsen sooner, to contact their primary care physician. Potential red flag symptoms discussed with the patient. Reviewed appropriate action plan to take if red flag symptoms occur. Patient agreeable to treatment plan. Reji Murcia APRN.SOLDERER [employer] CNOV Observed: 04/10/2018 Status: COMPLETED Source: [place] 3:00 PM [facility] REPOSITORY Office Visit (WSTR) ASHLEIGH MEDEL ([id number]) 1980 F Date Time Provider Department 04/10/18 3:00 PM REJI MURCIA (CUSTODIAL LABORER) [facility] During your visit today, we recorded the following information about you: Temperature Pulse Respiration Blood pressure 98.3 degrees 80/minute 18/minute 100/60 Weight 57.2 kg Reji Murcia APRN.CNP 04/10/2018 3:25 PM Signed Subjective HPI Patient presents with: Sore Throat: sore throat X 4 days States possible exposure last week. Denies URI symptoms. Ibuprofen otc with minimal relief. Review of Systems Constitutional: Positive for fever (low grade at home). HENT: Positive for sore throat. Negative for congestion and ear pain. Eyes: Negative for discharge and redness. Respiratory: Negative for cough. Gastrointestinal: Negative for abdominal pain, nausea and vomiting. Skin: Negative for rash. Neurological: Negative for headaches. 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 predniSONE (DELTASONE) 20 mg tablet Take 2 tablets by mouth once daily for 4 days. Take daily with food. SULFAMETHOXAZOLE/TRIMETHOPRIM (BACTRIM DS ORAL) Take by mouth. CEPHALEXIN (KEFLEX ORAL) Take by mouth. FAMILY HISTORY Problem Relation Age of Onset - Breast Cancer Maternal Grandmother - Hypertension Maternal Grandfather - Lipids Maternal Grandfather High cholesterol - Colon Cancer Paternal Grandmother - Diabetes Paternal Grandmother - Arthritis Paternal Grandmother Rheumatoid - Colon Cancer Paternal Uncle - Asthma Sister - Heart Sister MVP Social History Substance Use Topics - Smoking status: Never Smoker - Smokeless tobacco: Never Used - Alcohol use Yes Comment: socially Objective Physical Exam Constitutional: She is well-developed, well-nourished, and in no distress. HENT: Head: Normocephalic. Right Ear: External ear and ear canal normal. A middle ear effusion is present. Left Ear: External ear and ear canal normal. A middle ear effusion is present. Nose: Rhinorrhea present. Right sinus exhibits no maxillary sinus tenderness and no frontal sinus tenderness. Left sinus exhibits no maxillary sinus tenderness and no frontal sinus tenderness. Mouth/Throat: Posterior oropharyngeal erythema (injected and PND) present. Eyes: Conjunctivae are normal. Neck: Normal range of motion. Neck supple. Cardiovascular: Normal rate, regular rhythm and normal heart sounds. Pulmonary/Chest: Effort normal and breath sounds normal. No respiratory distress. She has no wheezes. Abdominal: Soft. She exhibits no distension. There is no tenderness. Lymphadenopathy: She has no cervical adenopathy. Skin: Skin is warm and dry. No rash noted. Nursing note and vitals reviewed. ASSESSMENT/PLAN: 1. Sore throat - ICD9: 462, ICD10: J02.9 - suspect viral - Rapid Strep negative in the office today and Throat culture pending - Discussed supportive care treatment with fluids, rest and analgesia. - The patient may also use OTC decongestants prn and warm salt water gargles, throat lozenges and/or OTC throat spray as needed. - The patient should follow up in 3-5 days if symptoms persist or worsen - Call back if drooling, increased temperature, symptoms of dehydration and/or still sick in one week - RAPID STREP TEST B/O - GROUP A STREPTOCOCCUS BY PCR Prescription instructions reviewed with patient as applicable. Patient advised if symptoms do not improve or if symptoms worsen sooner, to contact their primary care physician. Potential red flag symptoms discussed with the patient. Reviewed appropriate action plan to take if red flag symptoms occur. Patient agreeable to treatment plan. Reji Murcia APRN.OSIEL Murcia APRN.CNP 04/10/2018 3:17 PM Signed SORE THROAT INSTRUCTIONS SORE THROAT OVERVIEW - Sore throat is a common problem during childhood, and is usually the result of a bacterial or viral infection. Although sore throat usually resolves without complications, it sometimes requires treatment with an antibiotic. There are some less common causes of sore throat that are serious or even life-threatening. This topic will discuss the most common causes and treatments of sore throat in children, as well as the warning signs of more serious conditions. SORE THROAT CAUSES - The most likely cause of a child's sore throat depends upon the child's age, the season, and the geographic area. While viruses are the most common cause of sore throat, bacteria are another common cause. Bacteria and viruses are spread from one person to another through hand contact. Hands get contaminated when the sick individual touches their nose or mouth and then touches another person directly (gfuh-dr-hsci contact) or indirectly (nxss-pp-qwhwoi, such as doorknob, telephone, toys). It is difficult to determine the cause of sore throat based upon symptoms alone; an examination and laboratory test are recommended in most cases Viruses - There are many viruses that can cause pain and swelling of the throat. The most common include viruses that cause sore throat as part of an upper respiratory infection, such as the common cold. Other viruses that cause sore throat include influenza, adenovirus, and Yemi-Wilder virus (the cause of mononucleosis). Symptoms - Symptoms that may occur with a viral infection can include a runny nose and congestion, irritation or redness of the eyes, cough, hoarseness, soreness in the roof of the mouth, a skin rash, or diarrhea. In addition, children with viral infections may have a fever and may feel miserable. A high fever does not necessarily mean that the child has a bacterial infection. Group A streptococcus - Group A streptococcus (GAS) is the name of the bacterium that causes strep throat. Although other bacteria can cause a sore throat, GAS is the most common bacterial cause; up to 30 percent of children with a sore throat will have GAS. Strep throat usually occurs during the winter and early spring, and is most common in school-age children and their younger siblings. Symptoms - Symptoms of strep throat in children older than 3 years often develop suddenly and include fever (temperature ?100.4?F or 38?C), headache, abdominal pain, nausea, and vomiting. Other symptoms can include swollen glands in the neck, white patches of pus in the back or sides of the throat, small red spots on the roof of the mouth, and swelling of the uvula. A cough and cold are not commonly seen in children with strep throat. Strep throat is uncommon in children younger than age 2 to 3 years. However, GAS infection can occur in younger children, and may cause a runny nose and congestion that is prolonged, low-grade fever (?101?F or 38.3?C), and tender glands in the neck. Infants younger than 1 year may be fussy and have a decreased appetite and low-grade fever. SORE THROAT TREATMENT - The treatment of sore throat depends upon the cause; strep throat is treated with an antibiotic while viral pharyngitis is treated with rest, pain relievers, and other measures to reduce symptoms. Strep throat - Strep throat is usually treated with an antibiotic, such as penicillin, or an antibiotic similar to penicillin (eg, amoxicillin). Children who are allergic to penicillin will be given an alternate antibiotic. The antibiotic is usually given in pill or liquid form two or three times per day. A one-time injection is also available, and may be recommended if a child is unwilling to take an oral medication. After completing 24 hours of antibiotics, the child is no longer contagious and may return to school. Symptoms usually improve within 1 to 2 days. However, it is important for the child to finish the entire course of treatment (usually 10 days). If a child does not begin to improve or worsens within 3 days, the child should be reevaluated. Throat pain can be treated with a non-prescription pain medication, if needed. (See 'Pain medications' below.) In addition, parents should monitor their child for dehydration, which can develop if the child is not willing to drink or eat due to a sore throat. (See 'Monitor for dehydration' below.) Viral throat pain - Sore throat caused by viral infections usually last 4 to 5 days. During this time, treatments to reduce pain may be helpful but will not help to eliminate the virus. Antibiotics do not improve throat pain caused by a virus and are not recommended. A child with a viral infection is usually allowed to return to school when there has been no fever for 24 hours and the child feels well enough to pay attention. Pain medications - Throat pain can be treated with a mild pain reliever such as acetaminophen (Tylenol?) or a non-steroidal anti-inflammatory agent such as ibuprofen (Motrin?). These medications should be dosed according to weight, not age. Aspirin is not recommended for children <18 years due to the risk of a potentially serious condition known as Catrachito syndrome. Monitor for dehydration - Some children with a sore throat are reluctant to drink or eat due to pain. Drinking less fluid can lead to dehydration. To reduce the risk of dehydration, parents can offer warm or cold liquids. (See 'Other interventions' below.) Signs and symptoms of mild dehydration include a slightly dry mouth, increased thirst, and decreased urine output (one wet diaper or void in six hours). Signs of moderate or severe dehydration include decreased urine output (less than one wet diaper or void in six hours), lack of tears when crying, dry mouth, and sunken eyes. A child who is moderately or severely dehydrated should be evaluated by a healthcare provider as soon as possible to determine if treatment is needed. Oral rinses- Salt-water gargles are an old stand-by for relief of throat pain. It is not clear if this treatment is effective, but it is unlikely to be harmful. Most recipes suggest 1/4 to 1/2 teaspoon of salt per cup (8 ounces) of warm water. The water should be gargled and then spit out (not swallowed). Children younger than six to eight years are not able to gargle properly. An oral rinse composed of equal parts of diphenhydramine (Benadryl? liquid) and Maalox? (magnesium hydroxide, aluminum hydroxide, and simethicone) may be helpful for pain caused by a sore mouth or ulcers in the mouth. Children older than six to eight years may swish and spit (not swallow) the mixture. Sprays - Sprays containing topical anesthetics are available to treat sore throat. However, such sprays are no more effective than sucking on hard candy. In addition, a common anesthetic ingredient, benzocaine, can cause allergic reactions. We do not recommend throat sprays for children. Lozenges - A variety of medicated throat lozenges are available to relieve dryness or pain. However, it is not clear that lozenges work any better than hard candy. We do not recommend throat lozenges for children, especially children younger than 3 to 4 years, who can choke. Sucking on hard candy may provide some relief for children older than 3 to 4 years, who are not at risk for choking. Other interventions - Other interventions include sipping warm beverages (eg, honey or lemon tea, chicken soup), cold beverages, or eating cold or frozen desserts (eg, ice cream, popsicles). These treatments are safe for children. Honey should not be given to children younger than 12 months due to the potential risk of botulism poisoning. Alternative therapies - Health food stores, vitamin outlets, and Internet Web sites offer alternative treatments for relief of sore throat pain. We do not recommend these treatments due to the risks of contamination with pesticides/herbicides, inaccurate labeling and dosing information, and a lack of studies showing that these treatments are safe and effective. SORE THROAT PREVENTION - Hand washing is an essential and highly effective way to prevent the spread of infection. Hands should be wet with water and plain soap, and rubbed together for 15 to 30 seconds. Special attention should be paid to the fingernails, between the fingers, and the wrists. Hands should be rinsed thoroughly, and dried with a single use towel. Alcohol-based hand rubs are a good alternative for disinfecting hands if a sink is not available. Hand rubs should be spread over the entire surface of hands, fingers, and wrists until dry, and may be used several times. These rubs can be used repeatedly without skin irritation or loss of effectiveness. Hand rubs are available as a liquid or wipe in small, portable sizes that are easy to carry in a pocket or handbag. When a sink is available, visibly soiled hands should be washed with soap and water. Hands should be washed after coughing, blowing the nose or sneezing. While it is not always possible to limit contact with a person who is sick, avoiding touching the eyes, nose, or mouth after direct contact can help to prevent the spread of infection. In addition, tissues should be used to cover the mouth when sneezing or coughing. These used tissues should be disposed of promptly. Sneezing/coughing into the sleeve of one's clothing (at the inner elbow) is another means of containing sprays of saliva and secretions and has the advantage of not contaminating the hands. WHEN TO SEEK HELP - Parents of a child with throat pain and one or more of the following should contact their healthcare provider immediately: Difficulty swallowing or breathing Excessive drooling in an or young child Temperature ?101?F or 38.3?C Swelling of the neck Child is unable or unwilling to drink or eat Voice sounds muffled Child has a stiff neck or difficulty opening the mouth WHERE TO GET MORE INFORMATION - Your child's healthcare provider is the best source of information for questions and concerns related to your child's medical problem. This article will be updated as needed every four months on our web site ([email or web address]). Information below was obtained from Up to date Last literature review version 19.2: February 2011 This topic last updated: May 28, 2010 Referring Provider: SELF [200] Allergies As of Date: 04/10/2018 Noted Allergy Reaction ASA (SALICYLATES) 03/15/2007 10 - Anaphylaxis DILAUDID (HYDROMORPHONE) 01/29/2011 11 - Vomiting Date Reviewed: 04/10/2018 Reviewed by: Maryellen Shay Ma - Fully Assessed Reason for Visit: Sore Throat [200] Cmt: sore throat X 4 days Primary Visit Diagnosis:Sore throat [J02.9] Order(s):RAPID STREP TEST B/O [[id number]] Order #: [id number] GROUP A STREPTOCOCCUS BY PCR [SQGASPCR] Order #: [id number] predniSONE (DELTASONE) 20 mg tabletTake 2 tablets by mouth once daily for 4 days. Take daily with food.Disp: 8 tabletRfl: 0 Prescriptions as of 04/10/2018 Sig: BUPROPION XL 150 MG TAB Take 1 tablet by mouth once d* PREDNISONE 20 MG TABLET Take 2 tablets by mouth once * BACTRIM DS ORAL Take by mouth. KEFLEX ORAL Take by mouth. Problem List As Of Date 04/10/2018 Noted Resolved SUPERVIS NORMAL 1ST PREG [Z34.00] INVALID FOR*03/02/2008 SUPRF HIGH RISK NEC [O09.899] INVALID FOR*03/02/2008 THRT IVA LABOR-ANTEPART [O47.00] INVALID FOR*03/02/2008 Abdominal pain, right upper quadrant [R10.11] INVALID FOR*11/20/2011 Threatened Premature Labor, Antepartum [O47.00] INVALID FOR*01/06/2010 Supervision of Other High-Risk [O09.8*INVALID FOR*01/06/2010 Asthma, acute [J45.909] INVALID FOR* Priority: A RLQ abdominal mass [R19.03] INVALID FOR*10/06/2013 Acute pelvic pain, female [R10.2] INVALID FOR*10/06/2013 Post - coital bleeding INVALID FOR*10/05/2013 Unspecified constipation [K59.00] INVALID FOR* Priority: C Benign neoplasm of colon [D12.6] INVALID FOR* Priority: C Lumbar pain [M54.5] INVALID FOR* Priority: D RA (rheumatoid arthritis) [M06.9] INVALID FOR* Priority: A Dysmenorrhea [N94.6] INVALID FOR* Premature ovarian failure [E28.8] INVALID FOR* Other instructions from your clinician: SORE THROAT INSTRUCTIONS SORE THROAT OVERVIEW - Sore throat is a common problem during childhood, and is usually the result of a bacterial or viral infection. Although sore throat usually resolves without complications, it sometimes requires treatment with an antibiotic. There are some less common causes of sore throat that are serious or even life-threatening. This topic will discuss the most common causes and treatments of sore throat in children, as well as the warning signs of more serious conditions. SORE THROAT CAUSES - The most likely cause of a child's sore throat depends upon the child's age, the season, and the geographic area. While viruses are the most common cause of sore throat, bacteria are another common cause. Bacteria and viruses are spread from one person to another through hand contact. Hands get contaminated when the sick individual touches their nose or mouth and then touches another person directly (ypif-ff-euxo contact) or indirectly (idsl-xz-hetzra, such as doorknob, telephone, toys). It is difficult to determine the cause of sore throat based upon symptoms alone; an examination and laboratory test are recommended in most cases Viruses - There are many viruses that can cause pain and swelling of the throat. The most common include viruses that cause sore throat as part of an upper respiratory infection, such as the common cold. Other viruses that cause sore throat include influenza, adenovirus, and Yemi-Wilder virus (the cause of mononucleosis). Symptoms - Symptoms that may occur with a viral infection can include a runny nose and congestion, irritation or redness of the eyes, cough, hoarseness, soreness in the roof of the mouth, a skin rash, or diarrhea. In addition, children with viral infections may have a fever and may feel miserable. A high fever does not necessarily mean that the child has a bacterial infection. Group A streptococcus - Group A streptococcus (GAS) is the name of the bacterium that causes strep throat. Although other bacteria can cause a sore throat, GAS is the most common bacterial cause; up to 30 percent of children with a sore throat will have GAS. Strep throat usually occurs during the winter and early spring, and is most common in school-age children and their younger siblings. Symptoms - Symptoms of strep throat in children older than 3 years often develop suddenly and include fever (temperature ?100.4?F or 38?C), headache, abdominal pain, nausea, and vomiting. Other symptoms can include swollen glands in the neck, white patches of pus in the back or sides of the throat, small red spots on the roof of the mouth, and swelling of the uvula. A cough and cold are not commonly seen in children with strep throat. Strep throat is uncommon in children younger than age 2 to 3 years. However, GAS infection can occur in younger children, and may cause a runny nose and congestion that is prolonged, low-grade fever (?101?F or 38.3?C), and tender glands in the neck. Infants younger than 1 year may be fussy and have a decreased appetite and low-grade fever. SORE THROAT TREATMENT - The treatment of sore throat depends upon the cause; strep throat is treated with an antibiotic while viral pharyngitis is treated with rest, pain relievers, and other measures to reduce symptoms. Strep throat - Strep throat is usually treated with an antibiotic, such as penicillin, or an antibiotic similar to penicillin (eg, amoxicillin). Children who are allergic to penicillin will be given an alternate antibiotic. The antibiotic is usually given in pill or liquid form two or three times per day. A one-time injection is also available, and may be recommended if a child is unwilling to take an oral medication. After completing 24 hours of antibiotics, the child is no longer contagious and may return to school. Symptoms usually improve within 1 to 2 days. However, it is important for the child to finish the entire course of treatment (usually 10 days). If a child does not begin to improve or worsens within 3 days, the child should be reevaluated. Throat pain can be treated with a non-prescription pain medication, if needed. (See 'Pain medications' below.) In addition, parents should monitor their child for dehydration, which can develop if the child is not willing to drink or eat due to a sore throat. (See 'Monitor for dehydration' below.) Viral throat pain - Sore throat caused by viral infections usually last 4 to 5 days. During this time, treatments to reduce pain may be helpful but will not help to eliminate the virus. Antibiotics do not improve throat pain caused by a virus and are not recommended. A child with a viral infection is usually allowed to return to school when there has been no fever for 24 hours and the child feels well enough to pay attention. Pain medications - Throat pain can be treated with a mild pain reliever such as acetaminophen (Tylenol?) or a non-steroidal anti-inflammatory agent such as ibuprofen (Motrin?). These medications should be dosed according to weight, not age. Aspirin is not recommended for children <18 years due to the risk of a potentially serious condition known as Catrachito syndrome. Monitor for dehydration - Some children with a sore throat are reluctant to drink or eat due to pain. Drinking less fluid can lead to dehydration. To reduce the risk of dehydration, parents can offer warm or cold liquids. (See 'Other interventions' below.) Signs and symptoms of mild dehydration include a slightly dry mouth, increased thirst, and decreased urine output (one wet diaper or void in six hours). Signs of moderate or severe dehydration include decreased urine output (less than one wet diaper or void in six hours), lack of tears when crying, dry mouth, and sunken eyes. A child who is moderately or severely dehydrated should be evaluated by a healthcare provider as soon as possible to determine if treatment is needed. Oral rinses- Salt-water gargles are an old stand-by for relief of throat pain. It is not clear if this treatment is effective, but it is unlikely to be harmful. Most recipes suggest 1/4 to 1/2 teaspoon of salt per cup (8 ounces) of warm water. The water should be gargled and then spit out (not swallowed). Children younger than six to eight years are not able to gargle properly. An oral rinse composed of equal parts of diphenhydramine (Benadryl? liquid) and Maalox? (magnesium hydroxide, aluminum hydroxide, and simethicone) may be helpful for pain caused by a sore mouth or ulcers in the mouth. Children older than six to eight years may swish and spit (not swallow) the mixture. Sprays - Sprays containing topical anesthetics are available to treat sore throat. However, such sprays are no more effective than sucking on hard candy. In addition, a common anesthetic ingredient, benzocaine, can cause allergic reactions. We do not recommend throat sprays for children. Lozenges - A variety of medicated throat lozenges are available to relieve dryness or pain. However, it is not clear that lozenges work any better than hard candy. We do not recommend throat lozenges for children, especially children younger than 3 to 4 years, who can choke. Sucking on hard candy may provide some relief for children older than 3 to 4 years, who are not at risk for choking. Other interventions - Other interventions include sipping warm beverages (eg, honey or lemon tea, chicken soup), cold beverages, or eating cold or frozen desserts (eg, ice cream, popsicles). These treatments are safe for children. Honey should not be given to children younger than 12 months due to the potential risk of botulism poisoning. Alternative therapies - Health food stores, vitamin outlets, and Internet Web sites offer alternative treatments for relief of sore throat pain. We do not recommend these treatments due to the risks of contamination with pesticides/herbicides, inaccurate labeling and dosing information, and a lack of studies showing that these treatments are safe and effective. SORE THROAT PREVENTION - Hand washing is an essential and highly effective way to prevent the spread of infection. Hands should be wet with water and plain soap, and rubbed together for 15 to 30 seconds. Special attention should be paid to the fingernails, between the fingers, and the wrists. Hands should be rinsed thoroughly, and dried with a single use towel. Alcohol-based hand rubs are a good alternative for disinfecting hands if a sink is not available. Hand rubs should be spread over the entire surface of hands, fingers, and wrists until dry, and may be used several times. These rubs can be used repeatedly without skin irritation or loss of effectiveness. Hand rubs are available as a liquid or wipe in small, portable sizes that are easy to carry in a pocket or handbag. When a sink is available, visibly soiled hands should be washed with soap and water. Hands should be washed after coughing, blowing the nose or sneezing. While it is not always possible to limit contact with a person who is sick, avoiding touching the eyes, nose, or mouth after direct contact can help to prevent the spread of infection. In addition, tissues should be used to cover the mouth when sneezing or coughing. These used tissues should be disposed of promptly. Sneezing/coughing into the sleeve of one's clothing (at the inner elbow) is another means of containing sprays of saliva and secretions and has the advantage of not contaminating the hands. WHEN TO SEEK HELP - Parents of a child with throat pain and one or more of the following should contact their healthcare provider immediately: Difficulty swallowing or breathing Excessive drooling in an infant or young child Temperature ?101?F or 38.3?C Swelling of the neck Child is unable or unwilling to drink or eat Voice sounds muffled Child has a stiff neck or difficulty opening the mouth WHERE TO GET MORE INFORMATION - Your child's healthcare provider is the best source of information for questions and concerns related to your child's medical problem. This article will be updated as needed every four months on our web site ([email or web address]). Information below was obtained from Up to date Last literature review version 19.2: February 2011 This topic last updated: May 28, 2010 Prescriptions ordered this encounter Disp Refills Start End PREDNISONE 20 MG TABLET 8 ta* 0 04/10/2018 04/14/2018 Route: ORAL Sig: Take 2 tablets by mouth once daily for 4 days. Take daily with food. Disposition: Return if symptoms worsen or fail to improve. Follow-up and Disposition History Recorded Encounter Status:Closed by REJI MURCIA on 04/10/18 GROUP A STREP BY Collected: 04/10/2018 Status: F Source: [facility] PCR 3:00 PM [facility] REPOSITORY TYPE CODE TESTS RESULT OUT OF REFERENCE UNITS RANGE LAB GASSRC Throat Swab GAS Specimen Source LAB PCRGAS Negative for Group A Strep Group A PCR Streptococcus by PCR. Result Comment: This test was developed and its performance characteristics determined by [facility] [place] ([facility]). It has not been cleared or approved by the FDA. -[facility] is regulated under CLIA as qualified to perform high-complexity testing. This test is used for clinical purposes. It should not be regarded as inv estigational or for research. Performed By: #### GASPCR #### [facility] [address] [address] ALLERGIES ALLERGIES DATE TYPE / NAME / CODE REACTION SEVERITY SOURCE CODE 07/12/2017 Drug hydromorphone Itching Unknown [facility] Allergy/41 HCl/[id number](RXNO Community [id number]([facility]) Repository 07/12/2017 Drug aspirin/[id number]( Anaphylaxis Unknown [facility] Allergy/41 RXNORM) Community [id number]([facility]) Repository 01/29/2011 DRUG HYDROMORPHONE Vomiting [place] INGREDI/41 Clinic Main [id number]([facility] Repository 03/15/2007 Drug SALICYLATES ANAPHYLAXIS [place] Class/4195 Clinic Main [id number]([facility]) Repository ENCOUNTERS ENCOUNTERS ADMIT/DISCHARGE ACCOUNT ADMITTING ENCOUNTER LOCATION SOURCE NUMBER CLASS 11/03/2018 [id number] [facility] ing:LAB Repository 10/28/2018 [id number] [facility] ing:PT Repository 08/19/2018 [id number] [facility] ing:MRI Repository 08/05/2018 [id number] [facility] ing:BFHLAB Repository 06/06/2018 [id number] [facility] ing:EMPH Repository 04/10/2018/04/12/[id number] Repository PAYERS PAYERS ENCOUNTER GUARANTOR PAYER SUBSCRIBER SOURCE 11/03/2018 ASHLEIGH Kenneth Primary Insurance:[facility] ASHLEIGH Ulloa [id number] [facility] [id number] [facility] Center [address]Nyh: Number: Repository [id number] (HP) Date:3284-31-85[address] [address], [place] [address]IX: CHECK WEBSITE 11/03/2018 Secondary NOT GIVENUNK [facility] Insurance:SELF PAY [facility] Number: Effective Repository Date:2018-11-03 10/28/2018 ASHLEIGH M Primary Insurance:[facility] ASHLEIGH Cooper Artemio [id number] [facility] [id number] [facility] Health Center [address]Pwt: Number: Repository [id number] (HP) Date:2482-45-15[address] [address], [place] [address]RU: CHECK WEBSITE 10/28/2018 Secondary NOT GIVENUNK [facility] Insurance:SELF PAY [facility] Number: Effective Repository Date:2018-09-30 08/19/2018 ASHLEIGH M Primary ASHLEIGH Cooper [facility] [id number] Insurance:MEDICAL WALTERSDOB: [facility] [id number] Ana Health Center [address]Onb: Number: Repository [id number] (HP) Date:9438-04-02[address], [place] [address]AB: 08/19/2018 Secondary NOT GIVENUNK Artemio Insurance:SELF PAY [facility] Number: Effective Repository Date:2018-08-18 08/05/2018 ASHLEIGH M Primary ASHLEIGH Ulloa [id number] Insurance:MEDICAL WALTERSDOB: [facility] [id number] Ana Health Center [address]Qtf: Number: Repository [id number] (HP) Date:0008-30-67[address], [place] [address]PO: 08/05/2018 Secondary NOT GIVENUNK Artemio Insurance:SELF PAY [facility] Number: Effective Repository Date:2018-08-05 06/06/2018 Ashleigh Cooper Primary NOT GIVENUNK [facility] [id number] Insurance:SELF PAY [facility] [address]Rdo: Number: Effective Repository Date:2018-06-06 ()
== END 2018-11-14 19:00 | disposition home or self-care (01) ==
LOC: PT 13:00
PROVIDERS: Family Provider Family Medicine; PCP Family Medicine; Referring Provider Anesthesiology Pain Medicine; Visit Provider Anesthesiology Pain Medicine
DX: M54.9 Dorsalgia, unspecified (principal); M79.606 Pain in leg, unspecified
CPT/HCPCS: 97113; 97162

== ENCOUNTER → 2019-02-24 | Outpatient (CLI) | payer OTHER, SELFPAY ==
--- OUTSIDE RECORDS SUMMARY | 2019-02-24 15:36 | XMS RPT_ITS | CCD ---
:1980 External Reference #:[id number] Author Organization [facility] Care Team Providers Name Role Phone Unavailable Unavailable Unavailable Allergies Reported Allergen Reaction(s) Severity Date of Onset Location ASA Critical, 05-20-2017 - [facility] Critical ([id number]) HYDROmorphone Critical, 05-20-2017 [facility] Critical ([id number]) HYDROmorphone AO 01-29-2011 - [facility] Translations: [ [facility] HYDROMORPHONE] Repository salicylic acid AO 03-15-2007 - [facility] Translations: [ [facility] SALICYLATES] Repository Medications Medication Name Sig Date Prescriber Location Albuterol ALBUTEROL SULFATE NEBU 05-20-2017 [facility] PRN ALBUTEROL ([id number]) SULFATE [facility] [id number] Monika Martinez NP Hydroxychloroquine PLAQUENIL 200 MG TABS 05-20-2017 [facility] 300mg daily ([id number]) HYDROXYCHLOROQUINE SULFATE [id number] Monika Martinez NP MULTIPLE DAILY MULTIVITAMIN CAPS 05-20-2017 [facility] VITAMINS-MINERALS QD MULTIPLE ([id number]) VITAMINS-MINERALS [id number] Monika Martinez NP Problems Category Problem Name Status Date Location Unclassified Unspecified ovarian cyst, Active 07-16-2017 - [facility] left side [place] ([id number]) Results Result Name Value Range Unit Interpretation Flag Date Location us doppler complete on 2017-07-16 US DOPPLER * * *Final Report* * *DATE OF Normal 07-16-2017 [place] COMPLETE EXAM: Jul 16 2017 4:07PM BRU [address] [facility] - US DOPPLER COMPLETE / ACCESSION [place] # [id number] REASON: ([id number]) Abdominal pain, left lower quadrant * * * * Physician Interpretation * * * * PELVIC ULTRASOUNDHISTORY: Left-sided painCOMPARISON: CT scan from earlier the same day.TECHNIQUE: Sonography of the pelvis was performed by transvaginal techniques. Images were obtained and stored in a permanent archive.RESULT:UTERUS: -AbsentRIGHT OVARY: -AbsentLEFT OVARY: -Size: 3.2 x 2.8 x 2.3 cm -Cystic lesion: 2.0 x 1.8 x 1.7 cm -Solid mass: None. -Doppler flow is demonstrated.PELVIS FREE FLUID: -NoneIMPRESSION:Surgically absent uterus and right ovary.Left ovarian cyst.Product Development Director: PSCNataliya Transcribe Date/Time: Jul 16 2017 4:17PDictated by : NICHO JOSEPH MDThis examination was interpreted and the report reviewed and electronically signed by: NICHO JOSEPH MD on Jul 16 2017 4:18PM [id number] employer purchased services: [facility] null Fall risk assessment No 05-20-2017 - 05-20-2017 [facility] ([id number]) Protein mass conc Done 05-20-2017 - 05-20-2017 [facility] ([id number]) Protein mass conc no 05-20-2017 - 05-20-2017 [facility] ([id number]) Protein mass conc T 05-20-2017 - 05-20-2017 [facility] ([id number]) Tobacco smoking status Never 05-20-2017 - 05-20-2017 [facility] ([id number]) Tobacco smoking status Never smoker 05-20-2017 - 05-20-2017 [facility] ([id number]) us female pelvis transvag on 2017-07-16 US FEMALE * * *Final Report* * *DATE OF Normal 07-16-2017 [place] PELVIS TRANSVAG EXAM: Jul 16 2017 4:07PM BRU 1060 [facility] US FEMALE PELVIS TRANSVAG / [place] ([id number]) REASON: Abdominal pain, left lower quadrant * * * * Physician Interpretation * * * * PELVIC ULTRASOUNDHISTORY: Left-sided painCOMPARISON: CT scan from earlier the same day.TECHNIQUE: Sonography of the pelvis was performed by transvaginal techniques. Images were obtained and stored in a permanent archive.RESULT:UTERUS: -AbsentRIGHT OVARY: -AbsentLEFT OVARY: -Size: 3.2 x 2.8 x 2.3 cm -Cystic lesion: 2.0 x 1.8 x 1.7 cm -Solid mass: None. -Doppler flow is demonstrated.PELVIS FREE FLUID: -NoneIMPRESSION:Surgically absent uterus and right ovary.Left ovarian cyst.Product Development Director: PUSHPA Transcribe Date/Time: Jul 16 2017 4:17PDictated by : NICHO JOSEPH MDThis examination was interpreted and the report reviewed and electronically signed by: NICHO JOSEPH MD on Jul 16 2017 4:18PM [id number] progress on 2018-04-10 PROGRESS HNO ID: [id number]: Reji Gonzales (Top Lift Compressor) Normal 04-10-2018 [place] LewisService: (none)Author Type: Nurse Clinic PractitionerType: Progress NotesFiled: [place] 04/10/2018 3:25 PMNote ([id number]) Text:SubjectiveHPIPatient presents with:Sore Throat: sore throat X 4 daysStates possible exposure last week.Denies URI symptoms.Ibuprofen otc with minimal relief.Review of SystemsConstitutional: Positive for fever (low grade at home).HENT: Positive for sore throat. Negative for congestion and ear pain.Eyes: Negative for discharge and redness.Respiratory: Negative for cough.Gastrointestinal: Negative for abdominal pain, nausea and vomiting.Skin: Negative for rash.Neurological: Negative for headaches.PAST MEDICAL HISTORYDiagnosis Date- Chronic cholecystitis- Mitral valve disorders(424.0) SLIGHT, NO SBE- Restless legs syndrome (RLS)- Rheumatoid arthritis (HCC)- Unspecified asthma, with status asthmaticusPAST SURGICAL HISTORYProcedure Laterality Date- EXTRACTION ERUPTED TOOTH/EXR wisdom teeth- HYSTERECTOMY HX 05/14/2016- LAP CHOLECYSTECT/CHOLANGIOGRAPHY 04/18/08ALLERGIES Asa [Salicylates]; Dilaudid [Hydromorphone]MEDICATIONSbuPROPion XL (WELLBUTRIN XL) 150 mg 24 hr tablet Take 1 tablet by mouthonce daily.predniSONE (DELTASONE) 20 mg tablet Take 2 tablets by mouth once daily for4 days. Take daily with food.SULFAMETHOXAZOLE/TRIMETHOPRIM (BACTRIM DS ORAL) Take by mouth.CEPHALEXIN (KEFLEX ORAL) Take by mouth.FAMILY HISTORYProblem Relation Age of Onset- Breast Cancer Maternal Grandmother- Hypertension Maternal Grandfather- Lipids Maternal Grandfather High cholesterol- Colon Cancer Paternal Grandmother- Diabetes Paternal Grandmother- Arthritis Paternal Grandmother Rheumatoid- Colon Cancer Paternal Uncle- Asthma Sister- Heart Sister MVPSocial HistorySubstance Use Topics- Smoking status: Never Smoker- Smokeless tobacco: Never Used- Alcohol use Yes Comment: sociallyObjectivePhysical ExamConstitutional: She is well-developed, well-nourished, and in no distress.HENT:Head: Normocephalic.Right Ear: External ear and ear canal normal. A middle ear effusion ispresent.Left Ear: External ear and ear canal normal. A middle ear effusion ispresent.Nose: Rhinorrhea present. Right sinus exhibits no maxillary sinustenderness and no frontal sinus tenderness. Left sinus exhibits nomaxillary sinus tenderness and no frontal sinus tenderness.Mouth/Throat: Posterior oropharyngeal erythema (injected and PND) present.Eyes: Conjunctivae are normal.Neck: Normal range of motion. Neck supple.Cardiovascular: Normal rate, regular rhythm and normal heart sounds.Pulmonary/Chest: Effort normal and breath sounds normal. No respiratorydistress. She has no wheezes.Abdominal: Soft. She exhibits no distension. There is no tenderness.Lymphadenopathy: She has no cervical adenopathy.Skin: Skin is warm and dry. No rash noted.Nursing note and vitals reviewed.ASSESSMENT/PLAN:1. Sore throat - ICD9: 462, ICD10: J02.9- suspect viral- Rapid Strep negative in the office today and Throat culture pending- Discussed supportive care treatment with fluids, rest and analgesia.- The patient may also use OTC decongestants prn and warm salt watergargles, throat lozenges and/or OTC throat spray as needed.- The patient should follow up in 3-5 days if symptoms persist or worsen- Call back if drooling, increased temperature, symptoms of dehydrationand/or still sick in one week- RAPID STREP TEST B/O- GROUP A STREPTOCOCCUS BY PCRPrescription instructions reviewed with patient as applicable. Patientadvised if symptoms do not improve or if symptoms worsen sooner, tocontact their primary care physician. Potential red flag symptomsdiscussed with the patient. Reviewed appropriate action plan to take ifred flag symptoms occur. Patient agreeable to treatment plan.Reji Murcia APRN.OUTER DIAMETER GRINDER ct flank wo ivcon on 2017-07-16 CT FLANK * * *Final Report* * *DATE OF EXAM: Jul 16 Normal 07-16-2017 [place] WO IVCON 2016 2:32PM [facility] 0529 - CT FLANK WO IVCON Clinic / REASON: [place] Left low back pain * * * * Physician ([id number]) Interpretation * * * * CT ABDOMEN/PELVIS (RENAL STONE PROTOCOL)HISTORY: Left flank painTECHNIQUE: Non contrast axial images with coronal reconstructions.CT Radiation dose: Integrated Dose-length product (DLP) for this visit = 526 mGy*cm.CT Dose Reduction Employed: Automated exposure control (AEC)COMPARISON: None.Renal: No renal calculi are identified. There is no hydronephrosis or perinephric stranding. There is no ureteral dilatation and no ureteral calculi are identified.Liver: No mass.Biliary: No bile duct dilation.Spleen: No mass. No splenomegaly.Pancreas: No mass or duct dilation.Adrenals: No mass.GI tract: No dilation or wall thickening.Lymph nodes: No abdominal or pelvic lymphadenopathy.Mesentery/Peritoneum: No ascites or mass.Retroperitoneum: No mass or fluid collection.Vasculature: No abdominal aortic or iliac artery aneurysm.Pelvis: 1.7 cm cystic structure left hemipelvis likely involving the left ovary. No free pelvic fluid.Bones/Soft Tissues: No significant finding.Lower thorax: Unremarkable.IMPRESSION:No evidence for renal calculus or obstructive uropathy.Small cystic structure left hemipelvis likely involving the left ovary.Product Development Director: PSCNataliya Transcribe Date/Time: Jul 16 2017 2:47PDictated by : NICHO JOSEPH MDThis examination was interpreted and the report reviewed and electronically signed by: NICHO JOSEPH MD on Jul 16 2017 2:51PM [id number] group a strep by pcr on 2018-04-10 GAS Specimen Source Throat Swab Normal 04-10-2018 [facility] ([id number]) Comment: Performed By: #### GASPCR ####[facility] [address] [place], [place] [phone] Group A Strep PCR Negative for Group A Normal 04-10-2018 [facility] Streptococcus by PCR. [place] ([id number]) Comment: Result Comment: This test was developed and its performance characteristics determined by [facility]).It has not been cleared or approved by the FDA. [facility] is regulated under CLIA as qualified to perform high-complexity testing. This test is used for clinical purposes. It should not be regarded as investigational or for research. Performed By: #### GASPCR ####[facility] [address] [place], [place] [phone] cnov on 2018-04-10 CNOV Office Visit Normal 04-10-2018 [place] (UCWSTR) ASHLEIGH MEDEL [facility] ([id number]) 1980 [facility] Time Provider Department04/10/18 3:00 PM REJI MURCIA (FREIGHT RATE ANALYST) WS During [place] your visit today, we recorded the following information about you: Temperature Pulse Respiration Blood (39891) pressure 98.3 degrees 80/minute 18/minute 100/60 Weight 57.2 kgReji Murcia APRN.CNP 04/10/2018 3:25 PM SignedSubjectiveHPIPatient presents with:Sore Throat: sore throat X 4 daysStates possible exposure last week.Denies URI symptoms.Ibuprofen otc with minimal relief.Review of SystemsConstitutional: Positive for fever (low grade at home).HENT: Positive for sore throat. Negative for congestion and ear pain.Eyes: Negative for discharge and redness.Respiratory: Negative for cough.Gastrointestinal: Negative for abdominal pain, nausea and vomiting.Skin: Negative for rash.Neurological: Negative for headaches.PAST MEDICAL HISTORYDiagnosis Date- Chronic cholecystitis- Mitral valve disorders(424.0) SLIGHT, NO SBE- Restless legs syndrome (RLS)- Rheumatoid arthritis (HCC)- Unspecified asthma, with status asthmaticusPAST SURGICAL HISTORYProcedure Laterality Date- EXTRACTION ERUPTED TOOTH/EXR wisdom teeth- HYSTERECTOMY HX 05/14/2016- LAP CHOLECYSTECT/CHOLANGIOGRAPHY 04/18/08ALLERGIES Asa [Salicylates]; Dilaudid [Hydromorphone]MEDICATIONSbuPROPion XL (WELLBUTRIN XL) 150 mg 24 hr tablet Take 1 tablet by mouth oncedaily.predniSONE (DELTASONE) 20 mg tablet Take 2 tablets by mouth once daily for 4days. Take daily with food.SULFAMETHOXAZOLE/TRIMETHOPRIM (BACTRIM DS ORAL) Take by mouth.CEPHALEXIN (KEFLEX ORAL) Take by mouth.FAMILY HISTORYProblem Relation Age of Onset- Breast Cancer Maternal Grandmother- Hypertension Maternal Grandfather- Lipids Maternal Grandfather High cholesterol- Colon Cancer Paternal Grandmother- Diabetes Paternal Grandmother- Arthritis Paternal Grandmother Rheumatoid- Colon Cancer Paternal Uncle- Asthma Sister- Heart Sister MVPSocial HistorySubstance Use Topics- Smoking status: Never Smoker- Smokeless tobacco: Never Used- Alcohol use Yes Comment: sociallyObjectivePhysical ExamConstitutional: She is well-developed, well-nourished, and in no distress.HENT:Head: Normocephalic.Right Ear: External ear and ear canal normal. A middle ear effusion is present.Left Ear: External ear and ear canal normal. A middle ear effusion is present.Nose: Rhinorrhea present. Right sinus exhibits no maxillary sinus tendernessand no frontal sinus tenderness. Left sinus exhibits no maxillary sinustenderness and no frontal sinus tenderness.Mouth/Throat: Posterior oropharyngeal erythema (injected and PND) present.Eyes: Conjunctivae are normal.Neck: Normal range of motion. Neck supple.Cardiovascular: Normal rate, regular rhythm and normal heart sounds.Pulmonary/Chest: Effort normal and breath sounds normal. No respiratorydistress. She has no wheezes.Abdominal: Soft. She exhibits no distension. There is no tenderness.Lymphadenopathy: She has no cervical adenopathy.Skin: Skin is warm and dry. No rash noted.Nursing note and vitals reviewed.ASSESSMENT/PLAN:1. Sore throat - ICD9: 462, ICD10: J02.9- suspect viral- Rapid Strep negative in the office today and Throat culture pending- Discussed supportive care treatment with fluids, rest and analgesia.- The patient may also use OTC decongestants prn and warm salt water gargles,throat lozenges and/or OTC throat spray as needed.- The patient should follow up in 3-5 days if symptoms persist or worsen- Call back if drooling, increased temperature, symptoms of dehydration and/orstill sick in one week- RAPID STREP TEST B/O- GROUP A STREPTOCOCCUS BY PCRPrescription instructions reviewed with patient as applicable. Patient advisedif symptoms do not improve or if symptoms worsen sooner, to contact theirprour [facility] hospital[facility] care physician. Potential red flag symptoms discussed with thepatient. Reviewed appropriate action plan to take if red flag symptoms occur.Patient agreeable to treatment plan.Reji Murcia APRN.Marybeth Murcia APRN.CNP 04/10/2018 3:17 PM SignedSORE THROAT INSTRUCTIONSSORE THROAT OVERVIEW - Sore throat is a common problem during childhood, and isusually the result of a bacterial or viral infection. Although sore throatusually resolves without complications, it sometimes requires treatment with anantibiotic. There are some less common causes of sore throat that are seriousor even life-threatening.This topic will discuss the most common causes and treatments of sore throat inchildren, as well as the warning signs of more serious conditions.SORE THROAT CAUSES - The most likely cause of a child's sore throat dependsupon the child's age, the season, and the geographic area. While viruses arethe most common cause of sore throat, bacteria are another common cause.Bacteria and viruses are spread from one person to another through handcontact. Hands get contaminated when the sick individual touches their nose ormouth and then touches another person directly (vjqt-mn-wepk contact) orindirectly (skvy-pc-wgngav, such as doorknob, telephone, toys).It is difficult to determine the cause of sore throat based upon symptomsalone; an examination and laboratory test are recommended in most casesViruses - There are many viruses that can cause pain and swelling of thethroat. The most common include viruses that cause sore throat as part of anupper respiratory infection, such as the common cold. Other viruses that causesore throat include influenza, adenovirus, and Yemi-Wilder virus (the cause ofmononucleosis).Symptoms - Symptoms that may occur with a viral infection can include a runnynose and congestion, irritation or redness of the eyes, cough, hoarseness,soreness in the roof of the mouth, a skin rash, or diarrhea. In addition,children with viral infections may have a fever and may feel miserable. A highfever does not necessarily mean that the child has a bacterial infection.Group A streptococcus - Group A streptococcus (GAS) is the name of thebacterium that causes strep throat. Although other bacteria can cause a sorethroat, GAS is the most common bacterial cause; up to 30 percent of childrenwith a sore throat will have GAS. Strep throat usually occurs during the winterand early spring, and is most common in school- age children and their youngersiblings.Symptoms - Symptoms of strep throat in children older than 3 years oftendevelop suddenly and include fever (temperature ?100.4?F or 38?C), headache,abdominal pain, nausea, and vomiting. Other symptoms can include swollen glandsin the neck, white patches of pus in the back or sides of the throat, small redspots on the roof of the mouth, and swelling of the uvula.A cough and cold are not commonly seen in children with strep throat.Strep throat is uncommon in children younger than age 2 to 3 years. However,GAS infection can occur in younger children, and may cause a runny nose andcongestion that is prolonged, low-grade fever (?101?F or 38.3?C), and tenderglands in the neck. Infants younger than 1 year may be fussy and have adecreased appetite and low-grade fever.SORE THROAT TREATMENT - The treatment of sore throat depends upon the cause;strep throat is treated with an antibiotic while viral pharyngitis is treatedwith rest, pain relievers, and other measures to reduce symptoms.Strep throat - Strep throat is usually treated with an antibiotic, such aspenicillin, or an antibiotic similar to penicillin (eg, amoxicillin). Childrenwho are allergic to penicillin will be given an alternate antibiotic. Theantibiotic is usually given in pill or liquid form two or three times per day.A one-time injection is also available, and may be recommended if a child isunwilling to take an oral medication.After completing 24 hours of antibiotics, the child is no longer contagious andmay return to school. Symptoms usually improve within 1 to 2 days. However, itis important for the child to finish the entire course of treatment (usually 10days). If a child does not begin to improve or worsens within 3 days, the childshould be reevaluated.Throat pain can be treated with a non-prescription pain medication, if needed.(See 'Pain medications' below.)In addition, parents should monitor their child for dehydration, which candevelop if the child is not willing to drink or eat due to a sore throat. (See'Monitor for dehydration' below.)Viral throat pain - Sore throat caused by viral infections usually last 4 to 5days. During this time, treatments to reduce pain may be helpful but will nothelp to eliminate the virus. Antibiotics do not improve throat pain caused by avirus and are not recommended.A child with a viral infection is usually allowed to return to school whenthere has been no fever for 24 hours and the child feels well enough to payattention.Pain medications - Throat pain can be treated with a mild pain reliever such asacetaminophen (Tylenol?) or a non-steroidal anti-inflammatory agent such asibuprofen (Motrin?). These medications should be dosed according to weight, notage.Aspirin is not recommended for children <18 years due to the risk of apotentially serious condition known as Catrachito syndrome.Monitor for dehydration - Some children with a sore throat are reluctant todrink or eat due to pain. Drinking less fluid can lead to dehydration. Toreduce the risk of dehydration, parents can offer warm or cold liquids. (See'Other interventions' below.)Signs and symptoms of mild dehydration include a slightly dry mouth, increasedthirst, and decreased urine output (one wet diaper or void in six hours). Signsof moderate or severe dehydration include decreased urine output (less than onewet diaper or void in six hours), lack of tears when crying, dry mouth, andsunken eyes.A child who is moderately or severely dehydrated should be evaluated by [facility] provider as soon as possible to determine if treatment is needed.Oral rvwowc-Gbsv-uvogi gargles are an old stand-by for relief of throat pain. It is notclear if this treatment is effective, but it is unlikely to be harmful. Mostrecipes suggest 1/4 to 1/2 teaspoon of salt per cup (8 ounces) of warm water.The water should be gargled and then spit out (not swallowed). Children youngerthan six to eight years are not able to gargle properly.An oral rinse composed of equal parts of diphenhydramine (Benadryl? liquid) andMaalox? (magnesium hydroxide, aluminum hydroxide, and simethicone) may behelpful for pain caused by a sore mouth or ulcers in the mouth. Children olderthan six to eight years may swish and spit (not swallow) the mixture.Sprays - Sprays containing topical anesthetics are available to treat sorethroat. However, such sprays are no more effective than sucking on hard candy.In addition, a common anesthetic ingredient, benzocaine, can cause allergicreactions. We do not recommend throat sprays for children.Lozenges - A variety of medicated throat lozenges are available to relievedryness or pain. However, it is not clear that lozenges work any better thanhard candy. We do not recommend throat lozenges for children, especiallychildren younger than 3 to 4 years, who can choke. Sucking on hard candy mayprovide some relief for children older than 3 to 4 years, who are not at riskfor choking.Other interventions - Other interventions include sipping warm beverages (eg,honey or lemon tea, chicken soup), cold beverages, or eating cold or frozendesserts (eg, ice cream, popsicles). These treatments are safe for children.Honey should not be given to children younger than 12 months due to thepotential risk of botulism poisoning.Alternative therapies - Health food stores, vitamin outlets, and Internet Websites offer alternative treatments for relief of sore throat pain. We do notrecommend these treatments due to the risks of contamination withpesticides/herbicides, inaccurate labeling and dosing information, and a lackof studies showing that these treatments are safe and effective.SORE THROAT PREVENTION - Hand washing is an essential and highly effective wayto prevent the spread of infection. Hands should be wet with water and plainsoap, and rubbed together for 15 to 30 seconds. Special attention should bepaid to the fingernails, between the fingers, and the wrists. Hands should berinsed thoroughly, and dried with a single use towel.Alcohol-based hand rubs are a good alternative for disinfecting hands if a sinkis not available. Hand rubs should be spread over the entire surface of hands,fingers, and wrists until dry, and may be used several times. These rubs can beused repeatedly without skin irritation or loss of effectiveness. Hand rubs areavailable as a liquid or wipe in small, portable sizes that are easy to carryin a pocket or handbag. When a sink is available, visibly soiled hands shouldbe washed with soap and water.Hands should be washed after coughing, blowing the nose or sneezing. While itis not always possible to limit contact with a person who is sick, avoidingtouching the eyes, nose, or mouth after direct contact can help to prevent thespread of infection.In addition, tissues should be used to cover the mouth when sneezing orcoughing. These used tissues should be disposed of promptly. Sneezing/coughinginto the sleeve of one's clothing (at the inner elbow) is another means ofcontaining sprays of saliva and secretions and has the advantage of notcontaminating the hands.WHEN TO SEEK HELP - Parents of a child with throat pain and one or more of thefollowing should contact their healthcare provider immediately:Difficulty swallowing or breathingExcessive drooling in an or young childTemperature ?101?F or 38.3?CSwelling of the neckChild is unable or unwilling to drink or eatVoice sounds muffledChild has a stiff neck or difficulty opening the mouthWHERE TO GET MORE INFORMATION - Your child's healthcare provider is the bestsource of information for questions and concerns related to your child'smedical problem.This article will be updated as needed every four months on our web site(www.[employer]/patients).Information below was obtained from Up to dateLast literature review version 19.2: February 2011 This topic last updated: May 28, 2010Referring Provider: SELF [200]Allergies As of Date: 04/10/2018 Noted Allergy ReactionASA (SALICYLATES) 03/15/2007 10 - AnaphylaxisDILAUDID (HYDROMORPHONE) 01/29/2011 11 - VomitingDate Reviewed: 04/10/2018Reviewed by: Maryellen Shay Ma - Fully AssessedReason for Visit: Sore Throat [200] Cmt: sore throat X 4 daysPrimary Visit Diagnosis:Sore throat [J02.9]Order(s):RAPID STREP TEST B/O [[id number]] Order #: [id number] GROUP A STREPTOCOCCUS BY PCR [SQGASPCR] Order #: [id number] predniSONE (DELTASONE) 20 mg tabletTake 2 tablets by mouth once daily for 4 days. Take daily with food.Disp: 8 tabletRfl: 0Prescriptions as of 04/10/2018 Sig: BUPROPION XL 150 MG TAB Take 1 tablet by mouth once d* PREDNISONE 20 MG TABLET Take 2 tablets by mouth once * BACTRIM DS ORAL Take by mouth. KEFLEX ORAL Take by mouth.Problem List As Of Date 04/10/2018 Noted Resolved [...] sore throat that are serious or even life- threatening. This topic will discuss the most common [...] mouth and then touches another person directly (bjes-iv-ahqg contact) or indirectly (jkhe-nr-vwlezt, such as doorknob, telephone, toys). It is [...] every four months on our web site (www.[employer]/patients). Information below was obtained from Up to date Last literature review version 19.2: February 2011 This topic last updated: May 28, 2010Prescriptions ordered this encounter Disp Refills Start End PREDNISONE 20 MG TABLET 8 ta* 0 04/10/2018 04/14/2018 Route: ORAL Sig: Take 2 tablets by mouth once daily for 4 days. Take daily with food.Disposition: Return if symptoms worsen or fail to improve.Follow-up and Disposition History RecordedEncounter Number: [id number] Status:Closed by REJI MURCIA on 04/10/18 progress on 2017-07-20 PROGRESS HNO ID: [id number]: Letty (Osiel) Normal 07-20-2017 Fosterkathi Fu CNPService: (none)Author Type: Clinic Nurse PractitionerType: Rosemarie [place] NotesFiled: 07/20/2017 1:59 PMNote ([id number]) Text:Chief ComplaintPatient presents with:ED Follow-upHPKYLEjason Medel is a 36 year old female who presents here today for ERFollow Up.HOSPITAL/ER FOLLOW UP:Reason for visit: Lower back pain, pelvic painWhich facility[facility]Date [facility]: [facility]2017Diagnosis: Uncomplicated left ovary cystTesting done: CT abdomen, US transvag, CBC, CMP, UA, urine culture.Treatment given: NorcoCurrent symptoms: On 07/12/2017 went to [facility] ER, diagnosed with kidneyfunction. States that she has visible blood in her urine at that time.Given prescription for Keflex and Bactrim DS for 14 days. [facility] ER calledto say that her urine culture showed some growth and that she needed tocontinue taking prescribed antibiotics. Woke up on 07/16/2017 and hadextreme back pain. [facility] Had [facility] scan of abdomen. Hasleft ovary with 1.7 cm cyst. Denies any injury or trauma that precededthis pain. Continues to have dysuria and urgency. Denies any hematuriaat this time. Denies any fevers, but has complaints of chills. Nochanges to her stool pattern. UA and culture from 07/16/2017 was normal,no growth on culture. No nausea the past few days, but had some over the weekend. Missed two days of work this week due to the pain. Painradiates to her right groin area and her left lateral side. Tovey is toostrong for her and makes her sedated. Using ibuprofen on a daily basis,which takes the edge off. Patient has prior history of CHANDA with rightovary removal, appendectomy, and cholecystomy.In addition, she states that he was previously on Effexor for moodstabilization and hot flashes after her CHANDA. Did not like the sideeffects. States that she can live with hot flashes. Would like to try amedication to even her mood out.Past medical history, appointments, medications, allergies reviewed.Previous Medical HistoryPAST MEDICAL HISTORYDiagnosis Date- Chronic cholecystitis- Mitral valve disorders(424.0) SLIGHT, NO SBE- Restless legs syndrome (RLS)- Rheumatoid arthritis (HCC)- Unspecified asthma, with status asthmaticusPrevious Surgical HistoryPAST SURGICAL HISTORYProcedure Laterality Date- EXTRACTION ERUPTED TOOTH/EXR wisdom teeth- HYSTERECTOMY HX 05/14/2016- LAP CHOLECYSTECT/CHOLANGIOGRAPHY 04/18/08Family HistoryFAMILY HISTORYProblem Relation Age of Onset- Breast Cancer Maternal Grandmother- Hypertension Maternal Grandfather- Lipids Maternal Grandfather High cholesterol- Colon Cancer Paternal Grandmother- Diabetes Paternal Grandmother- Arthritis Paternal Grandmother Rheumatoid- Colon Cancer Paternal Uncle- Asthma Sister- Heart Sister MVPPatient AllergiesALLERGIESAllergen Reactions- Asa [Salicylates] Anaphylaxis- Dilaudid [Hydromorp* VomitingCurrent MedicationsNo current outpatient prescriptions on file prior to visit.No current facility-administered medications on file prior to visit.Social HistorySocial History Marital status: Spouse name: Years of education: 12 Number of children: 2Occupational 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 No wheezing, rhonchi, rales.Heart: RRR without murmur, gallop, or rubs. No ectopy.Abdomen: Soft, non-distended. Bowel sounds present in all quadrants.Moderate tenderness of the left lower quadrant in the area of the adnexa;was not able to palpate a mass.Health Maintenance ListONE PNEUMOVAX PRIOR TO AGE 65 due on 2001INFLUENZA(1) due on 06/11/2017TETANUS due on 07/25/2019PAP EVERY 5 YEARS due on 03/25/2021HPV EVERY 5 YEARS due on 1Data reviewedComponent Latest Ref Rng AND Units 07/16/2017WBC 3.70 - 11.00 k/uL 4.80RBC 3.90 - 5.20 m/uL 5.20Hemoglobin 11.5 - 15.5 g/dL 13.8Hematocrit 36.0 - 46.0 % 43.2MCV 80.0 - 100.0 fL 83.1MCH 26.0 - 34.0 pG 26.5MCHC 30.5 - 36.0 g/dL 31.9RDW-CV 11.5 - 15.0 % 13.6Platelet Count 150 - 400 k/uL 203MPV 9.0 - 12.7 fL 9.6Neut% % 55.9Abs Neut (ANC) 1.45 - 7.50 k/uL 2.68Lymph% % 33.1Abs Lymph 1.00 - 4.00 k/uL 1.59Mono% % 7.9Abs [place] 0.00 - 0.86 k/uL 0.38Eosin% % 2.7Abs Eosin 0.00 - 0.45 k/uL 0.13Baso% % 0.4Abs Baso 0.00 - 0.10 k/uL 0.02Color Yellow Light Yellow (A)Clarity Clear ClearGlucose, Urine Negative mg/dL NegativeBilirubin, Urine Negative NegativeKetones, Urine Negative NegativeSpecific [place], Ur 1.005 - 1.030 <1.005 (L)Hemoglobin/Blood,Ur Negative NegativepH, Urine 4.5 - 8.0 6.5Protein, Urine Negative mg/dL NegativeUrobilinogen Normal NormalNitrites Negative NegativeLeukest Negative NegativeWBC, Urine 0 - 5 /HPF 0-5RBC, Urine 0 - 3 /HPF 0-3Cast 0 /LPF SEE COMMENTEpithelial Cells /HPF SEE COMMENTProtein, Total 6.0 - 8.4 g/dL 7.4Albumin 3.5 - 5.0 g/dL 4.9Calcium 8.5 - 10.5 mg/dL 9.5Bilirubin, Total 0.0 - 1.5 mg/dL 0.4Alkaline Phosphatase 40 - 150 U/L 66AST 7 - 40 U/L 17Glucose 65 - 100 mg/dL 82BUN 8 - 25 mg/dL 9Creatinine 0.70 - 1.40 mg/dL 0.68 (L)Sodium 132 - 148 mmol/L 142Potassium 3.5 - 5.0 mmol/L 3.8Chloride 98 - 110 mmol/L 103CO2 23 - 32 mmol/L 29Anion Gap 9 - 18 mmol/L 10ALT 0 - 45 U/L 11Pregnancy Urine-ED(POC) Negative - Negative NegativeRef Range Ckd Preg Ur-ED(POC) Yes - Yes YesQuality Check Preg Ur-ED(POC) OK - OK OKCulture No growth (<1,000 CFU/ml)ImpressionIMPRESSION:No evidence for renal calculus or obstructive uropathy.Small cystic structure left hemipelvis likely involving the left ovary.Product Development Director: PUSHPA ?Transcribe Date/Time: Jul ?2:47PDictated by : Latanya HOWARD examination was interpreted and the report reviewed andelectronically signed by:NICHO JOSEPH MD on Jul ?2:51PM ?ESTResults-Findings* * *Final Report* * *DATE OF EXAM: Jul ?2:32PM ?[facility] ? 0529 ?- ?CT FLANK WO IVCON ?/ REASON: Left low back pain?? ?* * * * Physician Interpretation * * * *?CT ABDOMEN/PELVIS (RENAL STONE PROTOCOL)HISTORY: ? Left flank painTECHNIQUE: Non contrast axial images with coronal reconstructions.CT Radiation dose: Integrated Dose-length product (DLP) for this visit = ?526 mGy*cm.CT Dose Reduction Employed: Automated exposure control (AEC)COMPARISON: None.Renal: No renal calculi are identified. ?There is no hydronephrosis orperinephric stranding. ?There is no ureteral dilatation and no ureteralcalculi are identified.Liver: No mass.Biliary: No bile duct dilation.Spleen: No mass. No splenomegaly.Pancreas: No mass or duct dilation.Adrenals: No mass.GI tract: No dilation or wall thickening.Lymph nodes: No abdominal or pelvic lymphadenopathy.Mesentery/Peritoneum: No ascites or mass.Retroperitoneum: No mass or fluid collection.Vasculature: No abdominal aortic or iliac artery aneurysm.Pelvis: 1.7 cm cystic structure left hemipelvis likely involving the leftovary. ?No free pelvic fluid.Bones/Soft Tissues: No significant finding.Lower thorax: Unremarkable.ImpressionIMPRESSION:No evidence for renal calculus or obstructive uropathy.Small cystic structure left hemipelvis likely involving the left ovary.Product Development Director: PUSHPA ?Transcribe Date/Time: Jul ?2:47PDictated by : Latanya HOWARD examination was interpreted and the report reviewed andelectronically signed by:NICHO JOSEPH MD on Jul ?2:51PM ?ESTResults-Findings* * *Final Report* * *DATE OF EXAM: Jul ?2:32PM ?[facility] ? 0529 ?- ?CT FLANK WO IVCON ?/ REASON: Left low back pain?? ?* * * * Physician Interpretation * * * *?CT ABDOMEN/PELVIS (RENAL STONE PROTOCOL)HISTORY: ? Left flank painTECHNIQUE: Non contrast axial images with coronal reconstructions.CT Radiation dose: Integrated Dose-length product (DLP) for this visit = ?526 mGy*cm.CT Dose Reduction Employed: Automated exposure control (AEC)COMPARISON: None.Renal: No renal calculi are identified. ?There is no hydronephrosis orperinephric stranding. ?There is no ureteral dilatation and no ureteralcalculi are identified.Liver: No mass.Biliary: No bile duct dilation.Spleen: No mass. No splenomegaly.Pancreas: No mass or duct dilation.Adrenals: No mass.GI tract: No dilation or wall thickening.Lymph nodes: No abdominal or pelvic lymphadenopathy.Mesentery/Peritoneum: No ascites or mass.Retroperitoneum: No mass or fluid collection.Vasculature: No abdominal aortic or iliac artery aneurysm.Pelvis: 1.7 cm cystic structure left hemipelvis likely involving the leftovary. ?No free pelvic fluid.Bones/Soft Tissues: No significant finding.Lower thorax: Unremarkable.ASSESSMENT/PLAN:1. Dysuria - ICD9: 788.1, ICD10: R30.0 (primary diagnosis)- Unclear why she continues to have symptoms. Urine culture and UA werenormal on 07/16/2017.- Advised patient to keep hydrated. Finish previously prescribedantibiotics. Patient has pyridium at home and will try three days worthof this medication.- Advised to return if she continues to have these symptoms.2. Ovarian cyst, left - ICD9: 620.2, ICD10: N83.202- Left lower quadrant tenderness around the adnexa. Discussed that thispain should not be long lasting. Ovarian torsion ruled out by CT on07/16/2017.- Patient has received Toradol in the past without any problems.Currently taking ibuprofen. States that she only has reactions toaspirin.- KETOROLAC 10 MG TABLET for 5 days total- KETOROLAC 60 MG/2 ML INTRAMUSCULAR SOLUTION- Consult to women's health for further evaluation. Patient hadpreviously had her right ovary and uterus removed in the past.3. Mood change (HCC) - ICD9: 296.90, ICD10: F39- Patient would like to try a different medication than Effexor. Has hadmood instability related to early menopause. Did not like Effexor due tonightmares.- Will try BUPROPION XL 150 MG TAB- Follow up in 2 months.Discussed plan with Marli Parker CNP. Will have patient follow up in 2months to assess Wellbutrin.Letty Fu CNP cnov on 2017-07-20 CNOV Office Visit Normal 07-20-2017 [place] (FAMPWS) ASHLEIGH MEDEL ([id number]) 1980 FDate Time Provider Gzztjupzaj00/10/17 1:00 PM LETTY FU (OSIEL) [facility] During [place] your visit today, we recorded the following information about you: Pulse Respiration Blood pressure (71738) Weight 80/minute 16/minute 100/60 54.4 kgLetty Fu CNP, CNP 07/20/2017 1:59 PM SignedChief ComplaintPatient presents with:ED Follow-upHPKYLEjason Medel is a 36 year old female who presents here today for ER FollowUp.HOSPITAL/ER FOLLOW UP:Reason for visit: Lower back pain, pelvic painWhich facility: [facility]Date of visit: 07/16/2017Diagnosis: Uncomplicated left ovary cystTesting done: CT abdomen, US transvag, CBC, CMP, UA, urine culture.Treatment given: NorcoCurrent symptoms: On 07/12/2017 went to [facility] ER, diagnosed with kidney function. States that she has visible blood in her urine at that time. Givenprescription for Keflex and Bactrim DS for 14 days. [facility] ER called to say thather urine culture showed some growth and that she needed to continue takingprescribed antibiotics. Woke up on 07/16/2017 and had extreme back pain. [facility]. Has left ovary with 1.7 cm cyst.Denies any injury or trauma that preceded this pain. Continues to have dysuriaand urgency. Denies any hematuria at this time. Denies any fevers, but hascomplaints of chills. No changes to her stool pattern. UA and culture from07/16/2017 was normal, no growth on culture. No nausea the past few days, buthad some over the past weekend. Missed two days of work this week due to thepain. Pain radiates to her right groin area and her left lateral side. Norcois too strong for her and makes her sedated. Using ibuprofen on a daily basis,which takes the edge off. Patient has prior history of CHANDA with right ovaryremoval, appendectomy, and cholecystomy.In addition, she states that he was previously on Effexor for moodstabilization and hot flashes after her CHANDA. Did not like the side effects.States that she can live with hot flashes. Would like to try a medication toeven her mood out.Past medical history, appointments, medications, allergies reviewed.Previous Medical HistoryPAST MEDICAL HISTORYDiagnosis Date- Chronic cholecystitis- Mitral valve disorders(424.0) SLIGHT, NO SBE- Restless legs syndrome (RLS)- Rheumatoid arthritis (HCC)- Unspecified asthma, with status asthmaticusPrevious Surgical HistoryPAST SURGICAL HISTORYProcedure Laterality Date- EXTRACTION ERUPTED TOOTH/EXR wisdom teeth- HYSTERECTOMY HX 05/14/2016- LAP CHOLECYSTECT/CHOLANGIOGRAPHY 04/18/08Family HistoryFAMILY HISTORYProblem Relation Age of Onset- Breast Cancer Maternal Grandmother- Hypertension Maternal Grandfather- Lipids Maternal Grandfather High cholesterol- Colon Cancer Paternal Grandmother- Diabetes Paternal Grandmother- Arthritis Paternal Grandmother Rheumatoid- Colon Cancer Paternal Uncle- Asthma Sister- Heart Sister MVPPatient AllergiesALLERGIESAllergen Reactions- Asa [Salicylates] Anaphylaxis- Dilaudid [Hydromorp* VomitingCurrent MedicationsNo current outpatient prescriptions on file prior to visit.No current facility-administered medications on file prior to visit.Social HistorySocial History Marital status: Spouse name: Years of education: 12 Number of children: 2Occupational HistoryOccupation Employer CommentNA L[employer] HOS[employer]ICESocial History Main Topics Smoking status: Never Smoker Smokeless status: Never Used Alcohol use: Yes Comment: socially Drug use: No Sexual activity: Yes Partners with: Male control/protection: Surgical Comment: hysterectomyREVIEW OF SYSTEMS: as above?Reviewed relevant PMHx, PSHx, Social Hx, current medications and allergies.EXAM:BP 100/60 Pulse 80 Resp 16 Wt 54.4 kg (120 lb) LMP 04/27/2016 (ExactDate) BMI 18.79 kg/s5Fmzffzt Appearance: Well appearing, alert, in no acute distress, well-hydrated,well nourished..Back:Mild right sided CVA pain.Lungs: Lungs clear to auscultation. No wheezing, rhonchi, rales.Heart: RRR without murmur, gallop, or rubs. No ectopy.Abdomen: Soft, non-distended. Bowel sounds present in all quadrants. Moderatetenderness of the left lower quadrant in the area of the adnexa; was not ableto palpate a mass.Health Maintenance ListONE PNEUMOVAX PRIOR TO AGE 65 due on 2001INFLUENZA(1) due on 06/11/2017TETANUS due on 07/25/2019PAP EVERY 5 YEARS due on 03/25/2021HPV EVERY 5 YEARS due on 03/25/2021ata reviewedComponent Latest Ref Rng ANDamp; Units 07/16/2017WBC 3.70 - 11.00 k/uL 4.80RBC 3.90 - 5.20 m/uL 5.20Hemoglobin 11.5 - 15.5 g/dL 13.8Hematocrit 36.0 - 46.0 % 43.2MCV 80.0 - 100.0 fL 83.1MCH 26.0 - 34.0 pG 26.5MCHC 30.5 - 36.0 g/dL 31.9RDW-CV 11.5 - 15.0 % 13.6Platelet Count 150 - 400 k/uL 203MPV 9.0 - 12.7 fL 9.6Neut% % 55.9Abs Neut (ANC) 1.45 - 7.50 k/uL 2.68Lymph% % 33.1Abs Lymph 1.00 - 4.00 k/uL 1.59Mono% % 7.9Abs [place] 0.00 - 0.86 k/uL 0.38Eosin% % 2.7Abs Eosin 0.00 - 0.45 k/uL 0.13Baso% % 0.4Abs Baso 0.00 - 0.10 k/uL 0.02Color Yellow Light Yellow (A)Clarity Clear ClearGlucose, Urine Negative mg/dL NegativeBilirubin, Urine Negative NegativeKetones, Urine Negative NegativeSpecific [place], Ur 1.005 - 1.030 ANDlt;1.005 (L)Hemoglobin/Blood,Ur Negative NegativepH, Urine 4.5 - 8.0 6.5Protein, Urine Negative mg/dL NegativeUrobilinogen Normal NormalNitrites Negative NegativeLeukest Negative NegativeWBC, Urine 0 - 5 /HPF 0-5RBC, Urine 0 - 3 /HPF 0-3Cast 0 /LPF SEE COMMENTEpithelial Cells /HPF SEE COMMENTProtein, Total 6.0 - 8.4 g/dL 7.4Albumin 3.5 - 5.0 g/dL 4.9Calcium 8.5 - 10.5 mg/dL 9.5Bilirubin, Total 0.0 - 1.5 mg/dL 0.4Alkaline Phosphatase 40 - 150 U/L 66AST 7 - 40 U/L 17Glucose 65 - 100 mg/dL 82BUN 8 - 25 mg/dL 9Creatinine 0.70 - 1.40 mg/dL 0.68 (L)Sodium 132 - 148 mmol/L 142Potassium 3.5 - 5.0 mmol/L 3.8Chloride 98 - 110 mmol/L 103CO2 23 - 32 mmol/L 29Anion Gap 9 - 18 mmol/L 10ALT 0 - 45 U/L 11Pregnancy Urine-ED(POC) Negative - Negative NegativeRef Range Ckd Preg Ur-ED(POC) Yes - Yes YesQuality Check Preg Ur-ED(POC) OK - OK OKCulture No growth (ANDlt;1,000 CFU/ml)ImpressionIMPRESSION:No evidence for renal calculus or obstructive uropathy.Small cystic structure left hemipelvis likely involving the left ovary.Product Development Director: PUSHPA ?Transcribe Date/Time: Jul ?2:47PDictated by : NICHO JOSEPH MDThis examination was interpreted and the report reviewed andelectronically signed by:NICHO JOSEPH MD on Jul ?2:51PM ?ESTResults-Findings* * *Final Report* * *DATE OF EXAM: Jul ?2:32PM ?[facility] ? 0529 ?- ?CT FLANK WO IVCON ?/ REASON: Left low back pain?? ?* * * * Physician Interpretation * * * *?CT ABDOMEN/PELVIS (RENAL STONE PROTOCOL)HISTORY: ? Left flank painTECHNIQUE: Non contrast axial images with coronal reconstructions.CT Radiation dose: Integrated Dose-length product (DLP) for this visit = ?526 mGy*cm.CT Dose Reduction Employed: Automated exposure control (AEC)COMPARISON: None.Renal: No renal calculi are identified. ?There is no hydronephrosis orperinephric stranding. ?There is no ureteral dilatation and no ureteralcalculi are identified.Liver: No mass.Biliary: No bile duct dilation.Spleen: No mass. No splenomegaly.Pancreas: No mass or duct dilation.Adrenals: No mass.GI tract: No dilation or wall thickening.Lymph nodes: No abdominal or pelvic lymphadenopathy.Mesentery/Peritoneum: No ascites or mass.Retroperitoneum: No mass or fluid collection.Vasculature: No abdominal aortic or iliac artery aneurysm.Pelvis: 1.7 cm cystic structure left hemipelvis likely involving the leftovary. ?No free pelvic fluid.Bones/Soft Tissues: No significant finding.Lower thorax: Unremarkable.ImpressionIMPRESSION:No evidence for renal calculus or obstructive uropathy.Small cystic structure left hemipelvis likely involving the left ovary.Product Development Director: PUSHPA ?Transcribe Date/Time: Jul ?2:47PDictated by : NICHO JOSEPH MDThis examination was interpreted and the report reviewed andelectronically signed by:NICHO JOSEPH MD on Jul ?2:51PM ?ESTResults-Findings* * *Final Report* * *DATE OF EXAM: Jul ?2:32PM ?[facility] ? 0529 ?- ?CT FLANK WO IVCON ?/ REASON: Left low back pain?? ?* * * * Physician Interpretation * * * *?CT ABDOMEN/PELVIS (RENAL STONE PROTOCOL)HISTORY: ? Left flank painTECHNIQUE: Non contrast axial images with coronal reconstructions.CT Radiation dose: Integrated Dose-length product (DLP) for this visit = ?526 mGy*cm.CT Dose Reduction Employed: Automated exposure control (AEC)COMPARISON: None.Renal: No renal calculi are identified. ?There is no hydronephrosis orperinephric stranding. ?There is no ureteral dilatation and no ureteralcalculi are identified.Liver: No mass.Biliary: No bile duct dilation.Spleen: No mass. No splenomegaly.Pancreas: No mass or duct dilation.Adrenals: No mass.GI tract: No dilation or wall thickening.Lymph nodes: No abdominal or pelvic lymphadenopathy.Mesentery/Peritoneum: No ascites or mass.Retroperitoneum: No mass or fluid collection.Vasculature: No abdominal aortic or iliac artery aneurysm.Pelvis: 1.7 cm cystic structure left hemipelvis likely involving the leftovary. ?No free pelvic fluid.Bones/Soft Tissues: No significant finding.Lower thorax: Unremarkable.ASSESSMENT/PLAN:1. Dysuria - ICD9: 788.1, ICD10: R30.0 (primary diagnosis)- Unclear why she continues to have symptoms. Urine culture and UA werenormal on 07/16/2017.- Advised patient to keep hydrated. Finish previously prescribed antibiotics. Patient has pyridium at home and will try three days worth of this medication.- Advised to return if she continues to have these symptoms.2. Ovarian cyst, left - ICD9: 620.2, ICD10: N83.202- Left lower quadrant tenderness around the adnexa. Discussed that this painshould not be long lasting. Ovarian torsion ruled out by CT on 07/16/2017.- Patient has received Toradol in the past without any problems. Currentlytaking ibuprofen. States that she only has reactions to aspirin.- KETOROLAC 10 MG TABLET for 5 days total- KETOROLAC 60 MG/2 ML INTRAMUSCULAR SOLUTION- Consult to women's health for further evaluation. Patient had previously hadher right ovary and uterus removed in the past.3. Mood change (HCC) - ICD9: 296.90, ICD10: F39- Patient would like to try a different medication than Effexor. Has had moodinstability related to early menopause. Did not like Effexor due tonightmares.- Will try BUPROPION XL 150 MG TAB- Follow up in 2 months.Discussed plan with Marli Parker CNP. Will have patient follow up in 2 monthsto assess Wellbutrin.Papa Domingo Ma 07/20/2017 1:48 PM SignedThe patient is here for an injection of Toradol.Dose: 2mlAmount wasted: none.Route: IntramuscularSite: left upper quadrant gluteusManufacturer: nickie Gant #: [id number] Date: 11/29The date due for the next injection is n/aVivian Ganesh Dhaliwal Ma 07/20/2017 1:50 PM SignedLatex Allergy (AmbNurse Yes/No: 20589}Any new or significant change in pain? noPain scale: 6Pain Loccation: (AmbPainLoc: 00180}Pain character: sorenessPain Duration: OngoingFrequency: cont.Severity: OngoingReferring Provider: SELF [200]Allergies As of Date: 07/20/2017 Noted Allergy ReactionASA (SALICYLATES) 03/15/2007 10 - AnaphylaxisDILAUDID (HYDROMORPHONE) 01/29/2011 11 - VomitingDate Reviewed: 07/20/2017Reviewed by: Letty Maldonado) OSIEL Fu - Fully AssessedReason for Visit: ED Follow-up [821]Primary Visit Diagnosis:Dysuria [R30.0] Other Visit Diagnoses:Ovarian cyst, left [N83.202] Mood change (HCC) [F39]Order(s):buPROPion XL (WELLBUTRIN XL) 150 mg 24 hr tabletTake 1 tablet by mouth once daily.Disp: 30 tabletRfl: 1 ketorolac (TORADOL) 10 mg tabletTake 1 tablet by mouth every 6 hours as needed for Pain for up to 5 days. Patient has been loaded with Toradol 60 mg IM today.Disp: 20 tabletRfl: 0 ketorolac (TORADOL) 60 mg/2 mL solnInject 2 mL intramuscularly one time only for 1 dose.Disp: 1 mLRfl: 0 CONSULT TO [facility] [2872123] Order #: [id number]: 1Prescriptions as of 07/20/2017 Sig: BACTRIM DS ORAL Take by mouth. KEFLEX ORAL Take by mouth. BUPROPION XL 150 MG TAB Take 1 tablet by mouth once d* KETOROLAC 10 MG TABLET Take 1 tablet by mouth every * KETOROLAC 60 MG/2 ML INTRAMUS* Inject 2 mL intramuscularly o*Problem List As Of Date 07/20/2017 Noted Resolved SUPERVIS NORMAL 1ST PREG [Z34.00] [...] INVALID FOR* Premature ovarian failure [E28.8] INVALID FOR*Visit Notes:>> Claudia Lowe Jul 20, 2017 1:47 PM Status: SignedThe patient is here for an injection of Toradol.Dose: 2mlAmount wasted: none.Route: IntramuscularSite: left upper quadrant gluteusManufacturer: aliviashantacorwin ayersRegina #: [id number] Date: 11/29The date due for the next injection is n/Jovany Dhaliwal Ma>> Claudia Lowe Jul 20, 2017 1:49 PM Status: SignedLatex Allergy (AmbNurse Yes/No: 20360}Any new or significant change in pain? noPain scale: 6Pain Loccation: (AmbPainLoc: 72361}Pain character: sorenessPain Duration: OngoingFrequency: cont.Severity: OngoingPrescriptions ordered this encounter Disp Refills Start End BUPROPION XL 150 MG TAB 30 t* 1 07/20/2017 Route: ORAL Sig: Take 1 tablet by mouth once daily. KETOROLAC 10 MG TABLET 20 t* 0 07/20/2017 07/25/2017 Route: ORAL Sig: Take 1 tablet by mouth every 6 hours as needed for Pain for up to 5 days. Patient has been loaded with Toradol 60 mg IM today. KETOROLAC 60 MG/2 ML INTRAMUSCULAR S* 1 mL 0 07/20/2017 07/20/2017 Class: Back Office Route: INTRAMUSCULA Sig: Inject 2 mL intramuscularly one time only for 1 dose.Medications Discontinued During This Encounter HYDROcodone-acetaminophen (NORCO) 5-* 8 ta* 0 07/16/2017 07/20/2017 Class: Print RX Route: ORAL Sig: Take 1 tablet by mouth every 6 hours as needed. Disc: Course of therapy completed venlafaxine ER (EFFEXOR XR) 37.5 mg * 90 c* 4 10/14/2016 07/20/2017 Route: ORAL Sig: Take 1 capsule by mouth daily at bedtime. Disc: Course of therapy completed phenazopyridine (PYRIDIUM) 200 mg ta* 6 ta* 0 06/14/2016 07/20/2017 Class: Print RX Sig: TO BE TAKEN DIRECTED BY MOUTH ONE(1) TABLET THREE TIMES DAILY X 2 DAYS Disc: Course of therapy completed cyclobenzaprine (FLEXERIL) 10 mg tab* 30 t* 1 06/01/2016 07/20/2017 Route: ORAL Sig: Take 1 tablet by mouth three times daily as needed. Disc: Course of therapy completed Naproxen Sodium (ANAPROX DS) 550 mg * 30 t* 0 05/14/2016 07/20/2017 Route: ORAL Sig: Take 1 tablet by mouth every 12 hours as needed. FOR PAIN. Disc: Course of therapy completed kwdcnyfq-yxdya-dmosd-CF borate 750 m* 07/20/2017 Class: Historical Med Route: ORAL Sig: Take by mouth once daily. Disc: Course of therapy completed MULTIVIT ANDMINERALS/FERROUS FUM (MULT* 07/20/2017 Class: Historical Med Route: ORAL Sig: Take by mouth once daily. Disc: Course of therapy completed doxycycline monohydrate (MONODOX) 10* c* 0 02/18/2016 07/20/2017 Route: ORAL Sig: Take 1 capsule by mouth twice daily. Disc: Course of therapy completed traZODone (DESYREL) 50 mg tablet 30 t* 0 12/23/2015 07/20/2017 Route: ORAL Sig: Take 1 tablet by mouth at bedtime as needed. Disc: Course of therapy completed ketoconazole (NIZORAL) 2 % cream 30 g 2 12/23/2015 07/20/2017 Route: TOPICAL Sig: Apply 1 application to affected area once daily. Apply to rash and surrounding area Disc: Course of therapy completed albuterol HFA (PROVENTIL HFA, VENTOL* 1 In* 0 08/05/2014 07/20/2017 Class: Print RX Route: INHALATION Sig: Inhale 2 Puffs as instructed every 6 hours. Disc: Course of therapy completed albuterol 90 mcg/actuation INHALATIO* 0 12/23/2011 07/20/2017 Class: Med Update Route: INHALATION Sig: Inhale as instructed. Disc: Course of therapy completed hydroxychloroquine (PLAQUENIL) 200 m* 0 10/23/2010 07/20/2017 Class: Med Update Route: ORAL Sig: Take one(1) tablet daily. Disc: Course of therapy completed acetaminophen(TYLENOL 325 MG TAB) 0 01/07/2010 07/20/2017 Class: OTC Route: ORAL Sig: Take two(2) tablets every four(4) to six(6) hours as needed for pain. Disc: Course of therapy completed IBUPROFEN 800 MG TAB 30 0 01/07/2010 07/20/2017 Route: ORAL Sig: Take one(1) tablet every eight(8) hours as needed for pain. Disc: Course of therapy completed oxyCODONE-acetaminophen (PERCOCET) 5* 25 t* 0 05/04/2016 07/20/2017 Class: Print RX Route: ORAL Sig: Take 2 tablets by mouth every 6 hours as needed for Pain. As needed for moderate/break- through pain Disc: Course of therapy completedDisposition: Return in about 2 months (around 09/19/2017).Follow- up and Disposition History RecordedEncounter Number: [id number] Status:Closed by LETTY FU CNP on 07/20/17 urine culture on 2017-07-16 Urine culture, Culture Result - No Normal 07-16-2017 [facility] bacteria growth (<1,000 [place] (04932) CFU/ml) Comment: Performed By: #### URCUL ####[facility] [address] [place], [place] [phone] urinalysis with microscopic on 2017-07-16 Bilirubin, Urine Negative Negative Normal 07-16-2017 [facility] (63377) Cast SEE COMMENT 0 Normal 07-16-2017 [facility] (24150) Comment: Result Comment: 0 Erythrocytes 0-3 0-3 Normal 07-16-2017 [place] (RBC) [facility] (32003) Hemoglobin mass Negative Negative g/dL Normal 07-16-2017 [place] conc (Bld) [facility] (39015) Leukest Negative Negative Normal 07-16-2017 [facility] (23167) pH of blood 6.5 4.5-8.0 [pH] Normal 07-16-2017 [facility] (72043) Protein, Urine Negative Negative Normal 07-16-2017 [facility] (99171) Specific [place], <1.005 1.005-1.030 Low 07-16-2017 [place] Ur [facility] (76693) Urine, clarity Clear Clear Normal 07-16-2017 [facility] (65480) Urine, color Light Yellow Yellow Critically 07-16-2017 [facility] (20525) Urine, epithelial SEE COMMENT Normal 07-16-2017 [place] cells in sediment [facility] (97639) Comment: Result Comment: FewSquamous Epithelial Cells Urine, glucose presence Negative Negative Normal 07-16-2017 [facility] (19261) Urine, ketones presence Negative Negative Normal 07-16-2017 [facility] (90994) Urine, nitrite presence Negative Negative Normal 07-16-2017 [facility] (78241) Urine, urobilinogen Normal Normal Normal 07-16-2017 [facility] (51026) WBC (Leukocytes) 0-5 0-5 Normal 07-16-2017 [facility] (28787) progress on 2017-07-16 PROGRESS HNO ID: [id number]: Mari Normal [facility]-16-2017 [facility] RdmsService: Cristian ([id number]) (none)Author Type: (none)Type: Progress NotesFiled: 07/16/2017 4:08 PMNote Text: Radiology Service Progress NotePATIENT NAME: Ashleigh MedelMRN: [id number] OF SERVICE: July 16, 2017TIME: 4:08 PMPATIENT IDENTITY VERIFICATION COMPLETED USING TWO (2) METHODS: Patientconfirmed name verbally.PATIENT GENDER DATA: Female. status: : NoBreastfeeding status: NO.PATIENT RELEVANT IMPLANT DATA REVIEWED: Not ApplicableRADIOLOGY DEPARTMENT: UltrasoundPERIPHERAL IV DATA: Not applicableSIGNED BY: Mari Olmstead RdmsOctober 2016 4:08 PM PROGRESS HNO ID: [id number]: Eunice Paige 07-16-2017 [facility] Daniel PasService: (none)Author Cristian ([id number]) Type: (none)Type: Progress NotesFiled: 07/16/2017 2:22 PMNote Text: Radiology Service Progress NotePATIENT NAME: Ashleigh MedelMRN: [id number] OF SERVICE: July 16, 2017TIME: 2:19 PMPATIENT IDENTITY VERIFICATION COMPLETED USING TWO (2) METHODS: Patientconfirmed name verbally and ID band matches..PATIENT GENDER DATA: Female. status: : NoBreastfeeding status: NO.PATIENT RELEVANT IMPLANT DATA REVIEWED: Not ApplicableRADIOLOGY DEPARTMENT: CT; Exam(s) Completed: Abdomen/PelvisPERIPHERAL IV DATA: Not applicableSIGNED BY: Eunice Sanchez [facility] 2016 2:19 PM ed prov note on 2017-07-16 ED PROV HNO ID: [id number]: Casandra Kenneth Normal 07-16-2017 [facility] NOTE (Pa-C) AdkinsService: Emergency [place] MedicineAuthor Type: Physician ([id number]) AssistantType: ED Provider NotesFiled: 07/16/2017 5:03 PMNote Text:ED Provider NotePatient Name: Ashleigh MedelMRN: [id number] DATE: 07/16/17HistoryPatient presents with:Pain, Back: since yesterday morning, Hx of possible kidney infectionHPI Comments: This is a 36 y/o female PMHx of asthma, RLS, RA here withjaw aching low back pain more so on the left that radiates into her leftgroin that started yesterday morning. The patient is on Bactrim andKeflex currently for a more comp case UTI which she started 5 days agohowever she states she did not have this pain up until yesterday. Sheinitially did have some fevers however since being on antibiotics shedenies any recent fevers past 48 hours. She is somewhat nauseous howeverdenies any vomiting. She denies any dizziness, hematuria, vaginalbleeding or discharge constipation diarrhea melanotic stools or rectalbleeding or rash. She has a history of recurring ovarian cyst and is s/physterectomy and right oophorectomy as well as cholecystectomy andappendectomy. Patient does have a history of kidney infections and is notsure if she is starting to develop one of those however she is concernedprompting her to come to the ED. Denies any history of kidney stones.Patient is a 36 year old female presenting with back pain.History provided by: PatientBack PainAssociated symptoms: abdominal pain (left groin ), dysuria and pelvic pain(left )Associated symptoms: no chest pain, no fever and no weaknessPAST MEDICAL HISTORYDiagnosis Date- Chronic cholecystitis- Mitral valve disorders(424.0) SLIGHT, NO SBE- Restless legs syndrome (RLS)- Rheumatoid arthritis (HCC)- Unspecified asthma, with status asthmaticusPAST SURGICAL HISTORYProcedure Laterality Date- EXTRACTION ERUPTED TOOTH/EXR wisdom teeth- HYSTERECTOMY HX 05/14/2016- LAP CHOLECYSTECT/CHOLANGIOGRAPHY 04/18/08FAMILY HISTORYProblem Relation Age of Onset- Breast Cancer Maternal Grandmother- Hypertension Maternal Grandfather- Lipids Maternal Grandfather High cholesterol- Colon Cancer Paternal Grandmother- Diabetes Paternal Grandmother- Arthritis Paternal Grandmother Rheumatoid- Colon Cancer Paternal Uncle- Asthma Sister- Heart Sister MVPSocial HistorySocial History Main Topics- Smoking status: Never Smoker- Smokeless tobacco: Never Used- Alcohol use Yes Comment: socially- Drug use: No- Sexual activity: Yes Partners: Male control/ protection: Surgical Comment: hysterectomyALLERGIESAllergen Reactions- Asa [Salicylates] Anaphylaxis- Dilaudid [Hydromorp* VomitingReview of SystemsConstitutional: Negative for chills and fever.Respiratory: Negative for shortness of breath.Cardiovascular: Negative for chest pain.Gastrointestinal: Positive for abdominal pain (left groin ) and nausea.Negative for anal bleeding, blood in stool, constipation, diarrhea andvomiting.Genitourinary: Positive for dysuria, frequency, hematuria and pelvic pain(left ). Negative for decreased urine volume, difficulty urinating, flankpain, vaginal bleeding and vaginal discharge.Musculoskeletal: Positive for back pain.Skin: Negative for rash.Neurological: Negative for dizziness, syncope and weakness.Hematological: Does not bruise/bleed easily.Physical ExamBP 129/70 Pulse 87 Temp (Src) 97.5 (Oral) Resp 18 Ht 5' 7 (1.70m) Wt 118 lb (53.5kg) SpO2 100% LMP 04/27/2016 BMI 18.48 kg/(m2).Physical ExamConstitutional: She appears well-developed and well-nourished. She appearsdistressed (non-toxic appearing however appears uncomfortable).HENT:Head: Normocephalic and atraumatic.Mouth/Throat: Oropharynx is clear and moist.Eyes: Conjunctivae are normal. No scleral icterus.Neck: Neck supple.Cardiovascular: Normal rate and regular rhythm.Pulmonary/Chest: Effort normal and breath sounds normal. No respiratorydistress. She has no wheezes. She has no rales.Abdominal: Soft. Bowel sounds are normal. She exhibits no distension andno mass. There is tenderness (there is slight ttp in left mid abdomen).There is no rebound and no guarding.Genitourinary:Genitourinary Comments: No CVAT b/lMusculoskeletal:PORRAS x 4.Neurological: She is alert.Awake and alert. Normal speech. Motor grossly intact. Steady gait.Skin: Skin is warm and dry. No rash noted.Psychiatric: She has a normal mood and affect. Her behavior is normal.Nursing note and vitals reviewed.Diagnostic TestingResults for orders placed or performed during the hospital encounter of07/16/17URINALYSIS WITH MICROSCOPICResult Value Ref Range Color Light Yellow (A) Yellow Clarity Clear Clear Glucose, Urine Negative Negative mg/dL Bilirubin, Urine Negative Negative Ketones, Urine Negative Negative Specific [place], Ur <1.005 (L) 1.005 - 1.030 Hemoglobin/Blood,Ur Negative Negative pH, Urine 6.5 4.5 - 8.0 Protein, Urine Negative Negative mg/dL Urobilinogen Normal Normal Nitrites Negative Negative Leukest Negative Negative WBC, Urine 0-5 0 - 5 /HPF RBC, Urine 0-3 0 - 3 /HPF Cast SEE COMMENT 0 /LPF Epithelial Cells SEE COMMENT /HPFHCG URINE - ED(POC)Result Value Ref Range Urine-ED(POC) Negative Negative - Negative Ref Range Ckd Preg Ur-ED(POC) Yes Yes - Yes Quality Check Preg Ur-ED(POC) OK OK - OK HCG Test Kit Lot# - ED(POC) HCG Test Kit Exp Date - ED(POC)CBC + DIFFResult Value Ref Range WBC 4.80 3.70 - 11.00 k/uL RBC 5.20 3.90 - 5.20 m/uL Hemoglobin 13.8 11.5 - 15.5 g/dL Hematocrit 43.2 36.0 - 46.0 % MCV 83.1 80.0 - 100.0 fL MCH 26.5 26.0 - 34.0 pG MCHC 31.9 30.5 - 36.0 g/dL RDW-CV 13.6 11.5 - 15.0 % Platelet Count 203 150 - 400 k/uL MPV 9.6 9.0 - 12.7 fL Neut% 55.9 % Abs Neut (ANC) 2.68 1.45 - 7.50 k/uL Lymph% 33.1 % Abs Lymph 1.59 1.00 - 4.00 k/uL [place]% 7.9 % Abs [place] 0.38 0.00 - 0.86 k/uL Eosin% 2.7 % Abs Eosin 0.13 0.00 - 0.45 k/uL Baso% 0.4 % Abs Baso 0.02 0.00 - 0.10 k/uLCOMP METABOLIC PANELResult Value Ref Range Protein, Total 7.4 6.0 - 8.4 g/dL Albumin 4.9 3.5 - 5.0 g/dL Calcium 9.5 8.5 - 10.5 mg/dL Bilirubin, Total 0.4 0.0 - 1.5 mg/dL Alkaline Phosphatase 66 40 - 150 U/L AST 17 7 - 40 U/L Glucose 82 65 - 100 mg/dL BUN 9 8 - 25 mg/dL Creatinine 0.68 (L) 0.70 - 1.40 mg/dL Sodium 142 132 - 148 mmol/L Potassium 3.8 3.5 - 5.0 mmol/L Chloride 103 98 - 110 mmol/L CO2 29 23 - 32 mmol/L Anion Gap 10 9 - 18 mmol/L ALT 11 0 - 45 U/L? CT FLANK WO IVCON (Final result) Result time: 07/16/17 14:54:00? Final result by Interface, Results In (07/16/17 14:54:00)? Impression:? IMPRESSION:No evidence for renal calculus or obstructive uropathy.Small cystic structure left hemipelvis likely involving the left ovary.Product Development Director: PUSHPA ?Transcribe Date/Time: Jul ?2:47PDictated by : Latanya HOWARD examination was interpreted and the report reviewed andelectronically signed by:NICHO JOSEPH MD on Jul ?2:51PM ?EST? US FEMALE PELVIS TRANSVAG (Final result) Result time: 07/16/17 16:20:54? Final result by Interface, Results In (07/16/17 16:20:54)? Impression:? IMPRESSION:Surgically absent uterus and right ovary.Left ovarian cyst.Product Development Director: PSCNataliya ?Transcribe Date/Time: Jul ?4:17PDictated by : Latanya HOWARD examination was interpreted and the report reviewed andelectronically signed by:NICHO JOSEPH MD on Jul ?4:18PM ?EST-routine labs obtained and no leukocytosis. Cr/BUN wnl.ProceduresMedical Decision Making / ED CourseED Course-Medicated with Toradol and zofran-Given Tovey at disposition.This is a 36-year-old female who is currently being treated for UTI withKeflex and Bactrim DS presents to the ED with acute low back pain thatradiates into left groin that started yesterday. Upon arrival to the EDthe patient is hemodynamically stable. Afebrile. No respiratory distressor hypoxia. Routine labs obtained and relatively unremarkable. CT flankstudy did note a specific structure in the left lower abdomen consistentwith a likely left ovarian cyst which was confirmed with a pelvicultrasound, no torsion. The patient is afebrile with no leukocytosis andher urinalysis is relatively unremarkable and at this time I suspect herpain is likely secondary to the ovarian cyst and less likely to leftpyelonephritis. She was advised to continue her antibiotics as well asshe was provided with a prescription for a small supply of Tovey for heracute pain. I did show encouraged close follow-up with her PCP and Wednesdayto reevaluate her. I discussed indications to return to the ED. Patientexpressed understanding and consented to the above plan. No barriers ofcommunication were apparent and I answered all questions.Encounter Diagnosis ICD-10-CM1. Unspecified ovarian cyst, left side N83.202PlanThe Patient was DISCHARGED: Counseled patient regarding lab results ANDradiology results AND suspected diagnosis AND need for follow-up. Dischargedhome with verbal and written instructions. They were instructed to returnas needed for persistent or worsening symptoms or any new concerns.Given a prescription for the following medication(s): NorcoCondition at time of disposition: improved and stableSIGNATURE: Soraya Merino Pa-C07/16/17 1703 ed note on 2017-07-16 ED NOTE HNO ID: [id number]: Ganesh Cooper Normal 07-16-2017 [facility] (Jo) GONZALEZ Lynnervice: [facility] ([id number]) MedicineAuthor Type: Registered NurseType: ED NotesFiled: 07/16/2017 4:52 PMNote Text:Discharge instructions explained. Instructed to return for any worseningsymptoms or concerns. Pt verbalizes understanding of. ED NOTE HNO ID: [id number]: Ganesh Cooper Normal 07-16-2017 [facility] (Rn) GONZALEZ Lynnervice: [facility] ([id number]) MedicineAuthor Type: Registered NurseType: ED NotesFiled: 07/16/2017 4:08 PMNote Text: Pt sitting up in bed resting quietly. Visitors x 2 at bedside. Comfortmeasures provided. Call coon within reach. Updated on POC - awaiting USresults. Pt verbalizes understanding of. ED NOTE HNO ID: [id number] Normal 07-16-2017 [facility] Author: Ganesh Kinsey) JO Lynn [place] ([id number]) Service: Emergency Medicine Author Type: Registered Nurse Type: ED Notes Filed: 07/16/2017 4:04 PM Note Text: Patient returned to the Emergency Department. ED NOTE HNO ID: [id number] Normal 07-16-2017 [facility] Author: JO Apple [place] ([id number]) Service: Emergency Medicine Author Type: Registered Nurse Type: ED Notes Filed: 07/16/2017 3:57 PM Note Text: Patient transported to US in WC with tech. ED NOTE HNO ID: [id number] Normal 07-16-2017 [facility] Author: Judit GamaRnSteff Ghosh RN [place] ([id number]) Service: Emergency Medicine Author Type: Registered Nurse Type: ED Notes Filed: 07/16/2017 3:20 PM Note Text: pt aware of new orders for US, stating the PA updated her. no concerns. ED NOTE HNO ID: [id number] Normal 07-16-2017 [facility] Author: JO Apple [place] ([id number]) Service: Emergency Medicine Author Type: Registered Nurse Type: ED Notes Filed: 07/16/2017 2:35 PM Note Text: Patient returned to the Emergency Department. ED NOTE HNO ID: [id number] Normal 07-16-2017 [facility] Author: JO Apple Rn ([id number]) Service: Emergency Medicine Author Type: Registered Nurse Type: ED Notes Filed: 07/16/2017 2:25 PM Note Text: Patient transported to radiology on cart with tech. ED NOTE HNO ID: [id number] Normal 07-16-2017 [facility] Author: JO Apple Rn ([id number]) Service: Emergency Medicine Author Type: Registered Nurse Type: ED Notes Filed: 07/16/2017 1:56 PM Note Text: Pt up to BR with steady gait tolerating well. ED NOTE HNO ID: [id number]: Ganesh Cooper Normal 07-16-2017 [facility] GONZALEZ Easleyervice: Emergency [place] ([id number]) MedicineAuthor Type: Registered NurseType: ED NotesFiled: 07/16/2017 1:54 PMNote Text:Pt presents with C/O lower back pain radiating down left buttock andbilateral flank pain. Pt reports pain started last night and gettingprogressively worse. Pt reports that she has been on ATBt since Wednesday for. Pt reports she is taking two antibiotics and they are making mesick so then they started me on Zofran too. Pt reports blood in urine.Pt denies fevers when specifically asked. Pt denies any other associatedsigns/symptoms when specifically asked. Pt reports pain is aggravated withsitting or laying down. Pt reports pain is alleviated by walking andbending forward. ED NOTE HNO ID: [id number] Normal 07-16-2017 [facility] Author: Ganesh Cooper (Rn) JO Lynn [place] ([id number]) Service: Emergency Medicine Author Type: Registered Nurse Type: ED Notes Filed: 07/16/2017 1:55 PM Note Text: Agree with triage as documented by Aileen kohler. ED NOTE HNO ID: [id number]: Compa Normal 07-16-2017 [facility] (Medic) CanitiaService: Emergency [place] ([id number]) MedicineAuthor Type: Rim Fire Priming Operator and TechnicianType: ED NotesFiled: 07/16/2017 1:36 PMNote Text:Pt to ED for eval of low back pain since yesterday morning. Pt states sheis currently being treated for a UTI, and possibly a kidney infection. Ptc/o difficulties urinating, and states pain shoots down left leg. comp metabolic panel on 2017-07-16 Alanine aminotransferase 11 0-45 U/L Normal 07-16-2017 [facility] (ALT) [place] ([id number]) Albumin 4.9 3.5-5.0 g/dL Normal 07-16-2017 [facility] (07198) Alkaline phosphatase (ALP) 66 40-150 U/L Normal 07-16-2017 [facility] (86882) Anion gap 10 9-18 mmol/L Normal 07-16-2017 [facility] (27831) Aspartate aminotransferase 17 7-40 U/L Normal 07-16-2017 [facility] (AST) [place] (04800) Bilirubin (total) 0.4 0.0-1.5 mg/dL Normal 07-16-2017 [facility] (18085) Calcium 9.5 8.5-10.5 mg/dL Normal 07-16-2017 [facility] (51310) Chloride 103 98-110 mmol/L Normal 07-16-2017 [facility] (19387) CO2 29 23-32 mmol/L Normal 07-16-2017 [facility] (83349) Creatinine 0.68 0.70-1.40 mg/dL Low 07-16-2017 [facility] (22747) Glucose mass conc 82 65-100 mg/dL Normal 07-16-2017 [facility] (04737) Potassium molar conc 3.8 3.5-5.0 mmol/L Normal 07-16-2017 [facility] (00984) Protein 7.4 6.0-8.4 g/dL Normal 07-16-2017 [facility] (01396) Sodium 142 132-148 mmol/L Normal 07-16-2017 [facility] (99727) Urea nitrogen 9 8-25 mg/dL Normal 07-16-2017 [facility] (39753) cbc and differential on 2017-07-16 Abs Baso 0.02 0.00-0.10 k/uL Normal 07-16-2017 [facility] (61941) Abs [place] 0.38 0.00-0.86 k/uL Normal 07-16-2017 [facility] (75611) Abs Neut 2.68 1.45-7.50 k/uL Normal 07-16-2017 [facility] (68533) Basophils/100 WBC Auto 0.4 % Normal 07-16-2017 [facility] (Bld) [place] (02597) Eosinophils 0.13 0.00-0.45 k/uL Normal 07-16-2017 [facility] (23043) Eosinophils/100 2.7 % Normal 07-16-2017 [facility] leukocytes [place] (13533) Erythrocyte distribution 13.6 11.5-15.0 % Normal 07-16-2017 [facility] width Auto Ratio (RBC) [place] (76918) Erythrocytes (RBC) 5.20 3.90-5.20 m/uL Normal 07-16-2017 [facility] (61153) Hematocrit (HCT) 43.2 36.0-46.0 % Normal 07-16-2017 [facility] (89952) Hemoglobin mass conc 13.8 11.5-15.5 g/dL Normal 07-16-2017 [facility] (Bld) [place] (06216) Lymphocytes 1.59 1.00-4.00 k/uL Normal 07-16-2017 [facility] (06699) Lymphocytes/100 33.1 % Normal 07-16-2017 [facility] leukocytes [place] (14595) MCH 26.5 26.0-34.0 pG Normal 07-16-2017 [facility] (38333) MCHC mass conc (RBC) 31.9 30.5-36.0 g/dL Normal 07-16-2017 [facility] (22683) MCV 83.1 80.0-100.0 fL Normal 07-16-2017 [facility] (28869) Monocytes/100 leukocytes 7.9 % Normal 07-16-2017 [facility] [facility] ([id number] Neutrophils/100 WBC Auto 55.9 % Normal 07-16-2017 [facility] (Bld) [place] ([id number]) Platelet mean volume 9.6 9.0-12.7 fL Normal 07-16-2017 [facility] (PMV) [place] ([id number]) Platelets 203 150-400 k/uL Normal 07-16-2017 [facility] ([id number]) WBC (Leukocytes) 4.80 3.70-11.00 k/uL Normal 07-16-2017 [facility] ([id number]) Vital Signs Vital Sign Description Value / Unit Date Location The following section is limited to 5 entries per type and includes entries from the following time range: 20170520 - 20170520. BMI (Body Mass Index) 19.21 kg/m2 05-20-2017 - 05-20-2017 [facility] ([id number]) Body Temperature 99.6 [degF] 05-20-2017 - 05-20-2017 [facility] ([id number]) Height 167.64 cm 05-20-2017 - 05-20-2017 [facility] ([id number]) Pulse (Heart Rate) 57 /min 05-20-2017 - 05-20-2017 [facility] ([id number]) Respiratory Rate 16 /min 05-20-2017 - 05-20-2017 [facility] ([id number]) Weight 53.98 kg 05-20-2017 - 05-20-2017 [facility] ([id number]) Encounters Date Type Reason Provider Location 04-10-2018 - Ambulatory [facility] 04-12-2018 [place] ([id number]) 07-20-2017 - Ambulatory LETTY (OUTER DIAMETER GRINDER) TANK [facility] 07-21-2017 [place] ([id number]) 07-16-2017 - Emergency department [facility] 07-16-2017 patient visit [place] ([id number]) Procedures Procedure Name Date Provider Location History and physical examination, 05-20-2017 [facility] ([id number]) pre-employment Plan of Treatment Plan Description Date Location Appointment Appointment 05-20-2017 - 05-20-2017 [facility] ([id number]) The following information is from the original human readable content Type Date Detail Appointment 01:00 PM Monika Martinez NP, [address] [place] [address], [address], [address], Summary Purpose DATE CREATED AUTHOR AUTHOR'S ORGANIZATION 04/12/2018 [facility] Family History No Family History Records Found Advance Directives No Advanced Directives Records Found Additional Source Comments FOR RECORDS PERTAINING TO PATIENTS WHO ARE OR HAVE BEEN ENROLLED IN A CHEMICAL DEPENDENCY/SUBSTANCE ABUSE PROGRAM, SOME INFORMATION MAY BE OMITTED. This clinical summary was aggregated from multiple sources. Caution should be exercised in using it in the provision of clinical care. This summary normalizes information from multiple sources, and as a consequence, information in this document may materially changethe coding, format and clinical context of patient data. In addition, data may be omittedin some cases. CLINICAL DECISIONS SHOULD BE BASED ON THE PRIMARY CLINICAL RECORDS. [facility] provides no warranty or guarantee of the accuracy or completeness of information in this document. UNRECOGNIZED CONTENT PROVIDED BELOW FOR UNRECOGNIZED SECTION INFORMATION SOURCE DATE CREATED AUTHOR AUTHOR'S ORGANIZATION 04/12/2018 [facility]
[2019-02-24 15:46] LABS: Color, Urine Yellow (Yellow); Glucose, Dipstick Normal (Normal); Ketone-Dipstick Negative (Negative); Leukocyte Esterase-Dipstick Negative /ul (Negative); Nitrite-Dipstick Negative (Negative); Occult Blood-Urine 10 /ul (Negative); Protein-Dipstick Negative (Negative); Urine Bilirubin Dipstick Negative (Negative); Urine Clarity Clear (Clear); Urine Urobilinogen Normal (Normal)
== END | disposition home or self-care (01) ==
LOC: LAB.FUTURE 13:35
PROVIDERS: Family Provider Family Medicine; PCP Family Medicine; Referring Provider Family Medicine; Visit Provider Family Medicine
DX: R30.0 Dysuria (principal)
CPT/HCPCS: 81002; 87086; 87088

== ENCOUNTER 2021-01-13 09:32 | Emergency (ER) | payer OTHER, SELFPAY ==
[2021-01-13 09:33] VITALS: BP 122/77; PULSE 78; RESP 16; TEMP 36.7; O2SAT 98; BMI 19.4
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
--- NOTE | 2021-01-13 09:43 | RAD_ITS ---
EXAM: XR CERVICAL SPINE, 2 OR 3 VIEWS CLINICAL INDICATION: injury and pain TECHNIQUE: Frontal and lateral views of the cervical spine. This report was created using [employer] report [employer] technology. COMPARISON: None. FINDINGS: VERTEBRAE: Unremarkable. Preserved vertebral body height. No acute fracture. No spondylolisthesis. Preservation of the normal cervical lordosis. No significant facet arthropathy. DISC SPACES: Unremarkable. Disc spaces are maintained. SOFT TISSUES: Unremarkable. No prevertebral soft tissue widening. LUNG APICES: Clear. RAD/Cerv Spine 2 or 3 Views IMPRESSION: No evidence of acute fracture or spondylolisthesis. Electronically Signed: Antwan Harris MD at 10:28 EDT , Service support ,
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
[2021-01-13] MEDS: Ondansetron ODT 4 MG Tablet PO (10:43)
[2021-01-13 11:25] VITALS: BP 122/65; PULSE 79; RESP 18; O2SAT 100
[2021-01-13 12:05] VITALS: BP 134/62; PULSE 71; RESP 15; O2SAT 96
== END 2021-01-13 12:05 | disposition home or self-care (01) ==
PROVIDERS: Emergency Provider Emergency Medicine; PCP Family Medicine
DX: S40.012A Contusion of left shoulder, initial encounter (principal); S20.212A Contusion of left front wall of thorax, initial encounter; R20.2 Paresthesia of skin; V89.2XXA Person injured in unspecified motor-vehicle accident, traffic, initial encounter; Y93.9 Activity, unspecified; Y92.9 Unspecified place or not applicable; M06.9 Rheumatoid arthritis, unspecified; Z79.899 Other long term (current) drug therapy
CPT/HCPCS: 70450; 72040; 73030; 99283

== ENCOUNTER 2024-01-24 18:19 | Emergency (ER) | payer OTHER, SELFPAY ==
[2024-01-24 18:20] VITALS: BP 120/71; PULSE 80; RESP 18; TEMP 36.6; O2SAT 98; BMI 17.7
[2024-01-24 19:42] LABS: Absolute Neutrophil Count 3.7 X10^3/uL (2.0-7.7); Basophil# 0.03 X10^3/uL; Basophil% 0.5 % (0-1); Eosinophil# 0.04 X10^3/uL; Eosinophils% 0.7 % (0-5); Hematocrit 43.9 % (37-47); Hemoglobin 13.9 g/dL (12.0-15.0); Lymphocyte % 29.2 % (19-41); Mean Corp Hgb Conc 31.7 g/dL (32-36); Mean Corpuscular Hgb 26.2 pg (27.0-32.0); Mean Corpuscular Volume 82.8 fL (81-99); Mean Platelet Vol. 9.6 fl (6.2-12.0); Monocyte# 0.35 X10^3/uL; NRBC Flagged by Analyzer 0 % (0-5); Neutrophil % 63.4 % (47-70); Platelet Count 228 K/mm3 (150-450); RBC Distribution Width CV 13.8 % (11.6-14.6); RBC Distribution Width SD 41.5 fl (35.1-43.9); White Blood Count 5.8 K/mm3 (4.4-11.0)
[2024-01-24] MEDS: Meclizine HCl 25 MG Tablet PO (19:42)
[2024-01-24] MEDS: 0.9% Normal Saline (1000mL) 1,000 ML 999 ML IV (19:42)
[2024-01-24] MEDS: Ondansetron 4 MG/2 ML Vial IV (19:42)
[2024-01-24 20:00] LABS: Anion Gap 4 (5-15); BUN 11 mg/dL (7-18); BUN/Creat Ratio 14.9 RATIO (10-20); Calcium,Total 9.5 mg/dL (8.5-10.1); Chloride 105 mmol/L (98-107); Creatinine, Serum 0.74 mg/dL (0.55-1.02); EST Glomerular Filtration Rate 92 mL/min (>60); Est Glom Filt Rate - Afr Amer 112 mL/min (>60); Estimated Creatinine Clearance 81.17 ml/min; Glucose 91 mg/dL (74-106); Potassium 3.7 mmol/L (3.5-5.1); Sodium Level 140 mmol/L (136-145)
[2024-01-24 20:19] VITALS: BP 121/62; PULSE 70; RESP 16; O2SAT 100
--- NOTE | 2024-01-24 20:53 | EX.ED.DYSGE1 ---
HPI <RAKEL Lowe - Last Filed: 01/24/24 21:42> History of Present Illness Chief Complaint: Dizziness Narrative Narrative: Patient presenting today due to dizziness that she describes as a room spinning sensation that she has had since Wednesday evening. She reports that it has been gradually worsening since then. If she sits still and keeps her eyes closed her symptoms resolve, they are exacerbated by her turning her head and moving. She reports that she has had multiple episodes of vomiting since yesterday. She has had vertigo in the past but never this severe. She feels dehydrated. She reports a PMH of rheumatoid arthritis and asthma. She denies any tinnitus or loss of hearing. PFSH <RAKEL Lowe - Last Filed: 01/24/24 21:42> PFSH Home Medications ciprofloxacin HCl 500 mg tablet 500 mg PO BID #20 tabs 04/14/16 [Rx Last Taken Unknown] hydroxychloroquine 200 mg tablet 300 mg PO DAILY 04/14/16 [History Last Taken Unknown] oxycodone-acetaminophen 5 mg-325 mg tablet 1 tab PO Q4H PRN PRN Pain ##20 04/14/16 [Rx Last Taken Unknown] cephalexin 500 mg capsule 500 mg PO Q6 ##40 07/12/17 [Rx Last Taken Unknown] ondansetron 4 mg disintegrating tablet 4 mg PO Q8H PRN PRN Nausea #10 tabs 07/12/17 [Rx Last Taken Unknown] phenazopyridine 100 mg tablet 100 mg PO TID 07/12/17 [History Last Taken 07/12/17] sulfamethoxazole 800 mg-trimethoprim 160 mg tablet (Bactrim DS) 1 ea PO BID 07/12/17 [History Last Taken 07/12/17] cyclobenzaprine 10 mg tablet 10 mg PO TID PRN Muscle Spasm #9 TABLETS 01/13/21 [Rx Last Taken Unknown] ibuprofen 800 mg tablet 800 mg PO TID PRN PRN Pain #20 tabs 01/13/21 [Rx Last Taken Unknown] ondansetron 4 mg disintegrating tablet 4 mg PO Q6H PRN PRN Nausea #10 tabs 01/13/21 [Rx Last Taken Unknown] meclizine 25 mg tablet 25 mg PO 4X/DAY PRN PRN Dizziness #20 tabs 01/24/24 [Rx Last Taken Unknown] ondansetron 4 mg disintegrating tablet 4 mg PO Q8H PRN PRN Nausea #10 tabs 01/24/24 [Rx Last Taken Unknown] Allergy/AdvReac Type Severity Reaction Status Date / Time aspirin Allergy Anaphylaxis Verified 01/24/24 18:20 hydromorphone HCl Allergy Rash Verified 01/24/24 18:20 [From Dilaudid] Social History Smoking Status: Never smoker ROS <RAKEL Lowe - Last Filed: 01/24/24 21:42> ROS ED Constitutional Constitutional ED: Denies chills or fever(s) Eyes Eyes: Denies change in vision Cardiovascular Cardiovascular: Denies chest pain or palpitations Respiratory/Chest Respiratory/Chest: Denies cough or dyspnea Gastrointestinal Gastrointestinal: Denies abdominal pain, nausea or vomiting Musculoskeletal Musculoskeletal: Denies arthralgias or myalgias Integumentary Denies rash Neurologic Neurologic: Reports dizziness; Denies headache(s) or weakness EXAM <RAKEL Lowe - Last Filed: 01/24/24 21:42> Physical Exam Const Vital Signs: 01/24/24 18:20 01/24/24 20:19 01/24/24 21:21 Temperature 97.9 F 97.7 F L Temperature Source Temporal Pulse Rate 80 70 84 Respiratory Rate 18 16 16 Blood Pressure 120/71 121/62 H 113/51 L Blood Pressure Mean 87 81 71 Pulse Ox 98 100 95 Oxygen Delivery Method Room Air Room Air Positive well nourished, well developed and no apparent distress General Appearance ED: well developed HEENT Reports normocephalic, head/scalp atraumatic, TM's clear and dry mucous membranes Tympanic Membrane ED: Yes TM's clear Mouth ED: Yes dry mucous membranes Mouth: dry mucous membranes Eyes PERRL and EOMs intact bilaterally Neck full ROM and supple Chest Wall inspection of chest normal Resp normal respiratory effort and clear to auscultation bilaterally Cardio regular rate and regular rhythm GI soft to palpation, non-tender, non-distended and no masses Back/Spine normal ROM and normal to inspection Extremity normal to inspection and full ROM Neuro oriented x3, CN's II-XII intact bilaterally, moves all extremities, no focal motor deficits and no sensory deficits noted Sensorium / Orientation: awake and alert Psych mental status grossly normal and thought process normal Skin no rashes or lesions noted and no wounds <Antwan Yepez MD - Last Filed: 01/24/24 23:31> Physical Exam Const Vital Signs: 01/24/24 18:20 01/24/24 20:19 01/24/24 21:21 Temperature 97.9 F 97.7 F L Temperature Source Temporal Pulse Rate 80 70 84 Respiratory Rate 18 16 16 Blood Pressure 120/71 121/62 H 113/51 L Blood Pressure Mean 87 81 71 Pulse Ox 98 100 95 Oxygen Delivery Method Room Air Room Air MDM <RAKEL Lowe - Last Filed: 01/24/24 21:42> [facility] Narrative Medical decision making narrative: Patient presenting today with dizziness that she describes as a room spinning sensation. Her symptoms are resolved with rest and exacerbated with her moving her head [id number]. I did perform a Grace-Hallpike maneuver bilaterally, she became very dizzy on the left and began to dry heave. She had slight dizziness on the right. No nystagmus was appreciated. Clinically she does appear dehydrated and has dry mucous membranes. Given she has had multiple episodes of vomiting, I did obtain basic labs, no electrolyte derangement and labs overall are unremarkable. She was given IV fluids, Zofran, and meclizine. On reexamination she reports improvement of her symptoms. She is tolerating p.o. fluids. I do feel her examination is consistent with BPPV, I have given her instructions on the Avelino maneuver. I have encouraged that she follow-up with her PCP in the next 3 to 5 days. Return instructions were given and she was discharged home in stable condition. Lab Data Attestation: I reviewed the patient's lab results. Labs: Laboratory Results - last 24 hr 01/24/24 19:14 WBC 5.8 RBC 5.30 Hgb 13.9 Hct 43.9 MCV 82.8 MCH 26.2 L MCHC 31.7 L RDW Std Deviation 41.5 RDW Coeff of Chichi 13.8 Plt Count 228 MPV 9.6 Immature Gran % (Auto) 0.200 Neut % (Auto) 63.4 Lymph % (Auto) 29.2 Tate % (Auto) 6.0 Eos % (Auto) 0.7 Baso % (Auto) 0.5 Absolute Neuts (auto) 3.7 Absolute Lymphs (auto) 1.70 Nucleated RBC % 0 Sodium 140 Potassium 3.7 Chloride 105 Carbon Dioxide 31.0 Anion Gap 4 L BUN 11 Creatinine 0.74 Estim Creat Clear Calc 81.17 Est GFR (MDRD) Af Amer 112 Est GFR (MDRD) Non-Af 92 BUN/Creatinine Ratio 14.9 Glucose 91 Calcium 9.5 <Antwan Yepez MD - Last Filed: 01/24/24 23:31> [facility] Narrative Medical decision making narrative: Patient presenting today with dizziness that she describes as a room spinning sensation. Her symptoms are resolved with rest and exacerbated with her moving her head [id number]. I did perform a Ireton-Hallpike maneuver bilaterally, she became very dizzy on the left and began to dry heave. She had slight dizziness on the right. No nystagmus was appreciated. Clinically she does appear dehydrated and has dry mucous membranes. Given she has had multiple episodes of vomiting, I did obtain basic labs, no electrolyte derangement and labs overall are unremarkable. She was given IV fluids, Zofran, and meclizine. On reexamination she reports improvement of her symptoms. She is tolerating p.o. fluids. I do feel her examination is consistent with BPPV, I have given her instructions on the Avelino maneuver. I have encouraged that she follow-up with her PCP in the next 3 to 5 days. Return instructions were given and she was discharged home in stable condition. Dr. Yepez: I have personally performed a face to face assessment of the patient and have reviewed the HILL Note. I performed a substantive portion of the visit including all aspects of the following. My cr findings include: History is dizziness with history of previous vertigo, but not this bad. Exam is afebrile. Vital signs noted. Regular rate and rhythm. Lungs clear to auscultation bilaterally. Abdomen soft and nontender with normal active bowel sounds. PERRL, EOMI. Neurological examination nonfocal and nonlateralizing. Medical Decision Making: Check labs. Administer meclizine. Patient asymptomatic and improved. Rx meclizine. I reviewed the patient's laboratory results and find them unremarkable. I feel she can be discharged to follow-up. Return instructions reviewed. Disposition is discharged. Other additions or changes: [None] Lab Data Labs: Laboratory Results - last 24 hr 01/24/24 19:14 WBC 5.8 RBC 5.30 Hgb 13.9 Hct 43.9 MCV 82.8 MCH 26.2 L MCHC 31.7 L RDW Std Deviation 41.5 RDW Coeff of Chichi 13.8 Plt Count 228 MPV 9.6 Immature Gran % (Auto) 0.200 Neut % (Auto) 63.4 Lymph % (Auto) 29.2 Tate % (Auto) 6.0 Eos % (Auto) 0.7 Baso % (Auto) 0.5 Absolute Neuts (auto) 3.7 Absolute Lymphs (auto) 1.70 Nucleated RBC % 0 Sodium 140 Potassium 3.7 Chloride 105 Carbon Dioxide 31.0 Anion Gap 4 L BUN 11 Creatinine 0.74 Estim Creat Clear Calc 81.17 Est GFR (MDRD) Af Amer 112 Est GFR (MDRD) Non-Af 92 BUN/Creatinine Ratio 14.9 Glucose 91 Calcium 9.5 Discharge Plan Triage Chief Complaint: Dizziness Other Complaint: Nausea/Vomiting ED Midlevel Provider: Deirdre Bravo ED Provider: Antwan Yepez Dx/Rx/DC Orders Clinical Impression: Benign paroxysmal positional vertigo, Nausea & vomiting Instructions: ED BPV Vertigo Prescriptions: New ondansetron 4 mg tablet,disintegrating 4 mg PO Q8H PRN PRN (Reason: Nausea) Qty: 10 0RF meclizine 25 mg tablet 25 mg PO 4X/DAY PRN PRN (Reason: Dizziness) Qty: 20 0RF No Action hydroxychloroquine 200 MG tablet 300 mg PO DAILY ciprofloxacin HCl 500 MG tablet 500 mg PO BID Qty: 20 0RF oxycodone-acetaminophen 1 TABLET tablet 1 tab PO Q4H PRN PRN (Reason: Pain) Qty: 20 0RF sulfamethoxazole-trimethoprim [Bactrim DS] 1 EACH tablet 1 ea PO BID phenazopyridine 100 MG tablet 100 mg PO TID ondansetron 4 MG tablet 4 mg PO Q8H PRN PRN (Reason: Nausea) Qty: 10 0RF cephalexin 500 MG capsule 500 mg PO Q6 Qty: 40 0RF cyclobenzaprine 10 MG tablet 10 mg PO TID PRN (Reason: Muscle Spasm) Qty: 9 0RF ibuprofen 800 MG tablet 800 mg PO TID PRN PRN (Reason: Pain) Qty: 20 0RF ondansetron 4 MG tablet 4 mg PO Q6H PRN PRN (Reason: Nausea) Qty: 10 0RF Primary Care Provider: Soniya Feng Referrals: Soniya Feng MD [Primary Care Provider] - 3-5 Days Activity Restrictions/Additional Instructions: Please follow-up with your PCP and return for any worsening of your symptoms. Disposition Disposition: Home, Self Care Discharge Date/Time: 01/24/24 21:22
[2024-01-24 21:21] VITALS: BP 113/51; PULSE 84; RESP 16; TEMP 36.5; O2SAT 95
== END 2024-01-24 21:22 | disposition home or self-care (01) ==
PROVIDERS: Physician Assistant; Emergency Provider Emergency Medicine; PCP Family Medicine; Visit Provider Emergency Medicine
DX: H81.10 Benign paroxysmal vertigo, unspecified ear (principal); R11.2 Nausea with vomiting, unspecified
CPT/HCPCS: 80048; 85025; 96361; 96374; 99282; J7030; A4216; J2405